=== PATIENT | female | born 1945 | race Caucasian/White ===

== ENCOUNTER 2023-08-02 12:11 | Emergency (ER) | payer MEDICARE, MEDICAID, SELFPAY ==
[2023-08-02] VITALS (13 sets, daily range): BP systolic 110–128; BP diastolic 45–84; PULSE 70–75; RESP 13–20; TEMP 36.4; O2SAT 97–100
--- NOTE | ~2023-08-02 | XR_ITS ---
XR chest 2V 08/02/2023 14:50 Indication: Cough. Weakness. Procedure: AP and lateral views of the chest Comparison: No prior studies for comparison. Findings: Cardiomegaly. No focal air space disease, pulmonary edema, pleural effusion or suspected pn eumothorax. Moderate thoracic spondylosis with accentuated kyphosis. Impression: 1: No acute cardiopulmonary disease. Reviewed, dictated and finalized at location B. Impression: 1: No acute cardiopulmonary disease.
--- NOTE | ~2023-08-02 | CT_ITS ---
Noncontrast CT scan of the cervical spine Technique: Multiple contiguous axial [address] images of the cervical spine were obtained and rec onstructed in 2D sagittal and coronal planes on the acquisition scanner. Dose reduction technique was used on this scan by utilizing automated exposure control, adjustment of the mA and/or kV according to patient size. The dose-length product (DLP) was 115.03 mGy-cm. Clinical History: Pain Findings: No fractures or dislocations. There is moderate degenerative disc change at C5-C6. There i s mild degenerative change of the remainder of the cervical spine. There is left neural foraminal doretha rowing at C3-C4 with prominent left facet arthropathy. There is mild bilateral neural foraminal narro wing at C4-C5 with bilateral facet arthropathy, left worse than right. There is bilateral neural fora yolis narrowing at C5-C6, with facet arthropathy and probable disc osteophyte complex. There is bilat eral neural foraminal narrowing at C6-C7, with probable disc ossify complex and uncovertebral degener ative change. No prevertebral soft tissue swelling. Impression: No fracture or subluxation of the cervical spine. Degenerative spondylosis, as above. Reviewed, dictated and finalized at [facility] [place]. Impression: No fracture or subluxation of the cervical spine. Degenerative spondylosis, as above.
--- NOTE | ~2023-08-02 | CT_ITS ---
Non-contrast Head CT History: Status post fall Technique: Axial non-contrast imaging of the brain was performed. Dose reduction technique was used on this scan by utilizing automated exposure control and iterative reconstruction technique. The dose -length product (DLP) was 605.33 mGy-cm. Findings: There is no evidence of intracranial hemorrhage, mass lesion, or acute infarct. Extensive chronic right MCA distribution infarct is present. Large chronic left parietal lobe infarct present. Marcell cisterna magna noted. There is moderate to severe generalized atrophy. The calvarium appears nor mal. There is extensive left maxillary sinus disease, as well as mild bilateral ethmoid sinus disease . The remaining visualized paranasal sinuses and mastoid air cells are clear. Impression: No definite acute intracranial abnormality seen. Extensive chronic right MCA distribution infarct and large chronic left parietal lobe infarct. Moderate to severe generalized atrophy. Sinus disease, as above. Reviewed, dictated and finalized at [facility]. Impression: No definite acute intracranial abnormality seen. Extensive chronic right MCA distribution infarct and large chronic left parieta l lobe infarct. Moderate to severe generalized atrophy. Sinus disease, as above.
--- NOTE | 2023-08-02 12:28 | ECG_ITS ---
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 Measurements Intervals [place] Rate: 71 P: 78 VA: 192 QRS: 29 QRSD: 95 T: 31 QT: 402 QTc: 437 Interpretive Statements SINUS RHYTHM NORMAL ECG No previous ECG available for comparison Electronically Signed On 08-02-2023 14:52:15 CDT by Octavio Benjamin D.O.
--- NOTE | 2023-08-02 12:50 | ED.AMS ---
HPI - Altered Mental Status General Chief Complaint: Altered Mental Status <Huong Patterson PA-C - Last Filed: 08/02/23 18:08> Stated Complaint: confusion <Huong Patterson PA-C - Last Filed: 08/02/23 18:08> Time Seen by Provider: 08/02/23 12:30 <Huong Patterson PA-C - Last Filed: 08/02/23 18:08> Focused HPI: This is a 78-year-old female that presents to the emergency department for altered mental status. Family member brought her in due to concern. They found her on the floor at her home and she seemed confused. She lives home alone. Patient does not have any complaints currently. She denied falling. GENERAL: Well-appearing, well-nourished, and in no acute distress. HEAD: Normocephalic, atraumatic. CHEST: Clear to auscultation. ?No respiratory distress. HEART: Regular rate and rhythm.? NEURO: ?Alert and oriented x3. Patient screened in triage and initial orders placed.? ?Additional care and disposition to be based upon?diagnostic testing and treatment. <Huong Patterson PA-C - Last Filed: 08/02/23 18:08> Related Data Allergies/Adverse Reactions: Allergies Allergy/AdvReac Type Severity Reaction Status Date / Time No Known Allergies Allergy Verified 08/02/23 12:28 <Huong Patterson PA-C - Last Filed: 08/02/23 18:08> Review of Systems Review of Systems: CONSTITUTIONAL: Denies fever, chills, or sweats. EYES: Denies visual changes, redness, or discharge. ENT: Denies rhinorrhea, congestion, sore throat, or otalgia. CARDIOVASCULAR: Denies chest pain, palpitations, or edema. RESPIRATORY: Denies cough or dyspnea. GASTROINTESTINAL: Denies abdominal pain, nausea, vomiting, or diarrhea. GENITOURINARY: Denies dysuria or hematuria. SKIN: Denies rash or itching. MUSCULOSKELETAL: Denies back pain, joint pain, or myalgia. NEUROLOGIC: Denies headache, numbness, dizziness, or weakness. PSYCHIATRIC: Denies anxiety or depression. 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 HEAD: Normocephalic, atraumatic. EYES: PERRLA and EOMI. ENT: Nares clear, no rhinorrhea or epistaxis. Mucous membranes moist. Oropharynx without tonsillar hypertrophy exudate or other lesions. CHEST: Clear to auscultation. No respiratory distress. No wheezes rales or rhonchi HEART: Regular rate and rhythm. No murmur heard. Normal peripheral pulses. ABDOMEN: Soft, nontender, nondistended, normal active bowel sounds. EXTREMITIES: Normal range of motion. No edema. SKIN: Warm, dry, no rash. NEURO: Alert and oriented x3. Left upper and lower extremity weakness. Right-sided strength 5/5 in all extremities. Sensation intact bilaterally. PSYCH: Normal mood and affect. <Danielito Wilson MD - Last Filed: 08/02/23 17:17> Course Course Emergency Course: 13:35 - The patient is alert and oriented x3 and appears to have decision making capacity. I agree with the HPI as documented in the medical screening exam. 16:50 - CBC demonstrates baseline anemia with hemoglobin 11.5 but is otherwise unremarkable. Chemistries demonstrate elevated total CK of 1512, though with a normal creatinine of 1.0. Chemistries otherwise unremarkable. UA n
--- NOTE | 2023-08-02 13:53 | PC.NURSE ---
no chloroprep swabs available in the building. healthcare account manager states to use chlorohexadine prevantics pads instead to obtain blood cultures
[2023-08-02 13:57] LABS: Basophils Percent Auto 0.5 % (0.2-1.2); Eosinophils Percent Auto 0.4 % (0-4.4); Hemoglobin 11.5 g/dL (12.0-15.0); Immature Granulocyte Percent A 1.2 % (0-0.5); Lymphocytes Absolute Auto 1.68 K/mm3 (0.9-3.2); Lymphocytes Percent Auto 20.6 % (18.3-44.2); Mean Corpuscular HGB Conc 33.8 g/dl (32-36); Mean Corpuscular Hemoglobin 28.3 pg (26-34); Mean Corpuscular Volume 83.5 fl (80-100); Mean Platelet Volume 10.4 fl (7.4-10.4); Monocytes Absolute Auto 0.4 K/mm3 (0.1-0.6); Monocytes Percent Auto 5.4 % (2.6-8.5); Neutrophils Absolute Auto 5.9 K/mm3 (1.3-6.7); Neutrophils Percent Auto 71.9 % (45.5-73.1); Platelet Count Result 318 k/mm3 (150-375); Red Blood Count 4.07 M/mm3 (4.2-5.4); Red Cell Distribution Width 15.6 % (11.5-14.5); White Blood Count 8.2 K/mm3 (4.5-10.0)
[2023-08-02] MEDS: LACTATED RINGERS 1,000 ML 999 ML IV CONT (14:00)
--- NOTE | 2023-08-02 14:16 | ED.AMS ---
HPI - Altered Mental Status General Chief Complaint: Altered Mental Status Stated Complaint: confusion Time Seen by Provider: 08/02/23 12:30 History of Present Illness HPI narrative: This is a 78-year-old female, with previous history of stroke resulting in left-sided weakness, who is brought in by family members to the emergency room for confusion. The patient was reportedly found by her son on the floor after an unknown period of time yesterday. The patient complains of some cough, but has no other complaints at this time. She is focally not interested in staying here today. 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 HEAD: Normocephalic, atraumatic. EYES: PERRLA and EOMI. ENT: Nares clear, no rhinorrhea or epistaxis. Mucous membranes moist. Oropharynx without tonsillar hypertrophy exudate or other lesions. CHEST: Clear to auscultation. No respiratory distress. No wheezes rales or rhonchi HEART: Regular rate and rhythm. No murmur heard. Normal peripheral pulses. ABDOMEN: Soft, nontender, nondistended, normal active bowel sounds. EXTREMITIES: Normal range of motion. No edema. SKIN: Warm, dry, no rash. NEURO: Alert and oriented x3. Left upper lower extremity weakness compared to the right. Right upper and lower extremity strength 5/5. Moving all 4 limbs spontaneously PSYCH: Normal mood and affect. Course Course Emergency Course: 17:05 -CBC demonstrates baseline anemia. Chemistries unremarkable. Total CK elevated at 1512. UA not concerning for UTI. The patient tested negative for influenza, RSV and COVID. CT head demonstrates chronic changes consistent with stroke but is not concerning for mass or intracranial hemorrhage. CT cervical spine not concerning for fracture or dislocation. EKG not concerning for ischemia. I discussed the findings with the patient. They shared decision-making conversation regarding admission for observation IV fluids firs his discharge for aggressive or fluids. The patient prefers Vital Signs Vital signs: Vital Signs Temperature 97.6 F 08/02/23 12:24 Pulse Rate 73 08/02/23 12:24 Respiratory Rate 20 08/02/23 12:24 Blood Pressure 123/60 08/02/23 12:24 Pulse Oximetry 97 08/02/23 12:24 Oxygen Delivery Room Air 08/02/23 12:24 Temperature 97.6 F 08/02/23 12:24 Pulse Rate 72 08/02/23 17:31 Respiratory Rate 15 08/02/23 17:31 Blood Pressure 110/45 L 08/02/23 17:31 Pulse Oximetry 98 08/02/23 17:31 Oxygen Delivery Room Air 08/02/23 13:28 MDM - Altered Mental Status MDM Narrative Medical decision making narrative: Plan: Imaging, EKG, labs, IV fluids, reassess Differential Diagnosis Differential diagnosis: Likely altered mental status, delirium, hypoglycemia, hyponatremia, subarachnoid hemorrhage and other (Pneumonia, COVID, urinary tract infection, rhabdomyolysis, metabolic abnormality, other) Lab Data 08/02/23 13:49 08/02/23 13:49 Labs: Lab Results 08/02/23 08/02/23 08/02/23 Range/Units 13:49 14:01 15:59 WBC 8.2 (4.5-10.0) K/mm3 RBC 4.07 L (4.2-5.4) M/mm3 Hgb 11.5 L (12.0-15.0) g/dL Hct 34.0 L (37.0-47.0) % MCV 83.5 (80-100)
[2023-08-02 14:53] LABS: INR 1.5; Prothrombin Time 18.5 Seconds (11.1-14.7)
--- NOTE | 2023-08-02 15:18 | PC.NURSE ---
fuel quality tech and RN attempted straight cath but unable to visualize anatomy. patient has been provided IV fluids and bedpan. educated patient to notified staff with any urge to urinate
[2023-08-02 15:28] LABS: Alanine Aminotransferase 40 U/L (6-35); Albumin Level 3.8 g/dL (3.5-5.1); Alkaline Phosphatase 146 U/L (38-126); Anion Gap 10 mmol/L (4-12); Aspartate Amino Transferase 102 U/L (14-36); Bilirubin,Total 0.6 mg/dL (0.2-1.3); Blood Urea Nitrogen 40 mg/dL (7-17); Calcium 9.2 mg/dL (8.4-10.2); Carbon Dioxide 19 mmol/L (22-30); Chloride 109 mmol/L (98-107); Creatine Kinase 1512 U/L (30-135); Estimated Glomerular Filt Rate 53; Glucose 90 mg/dL (65-110); Potassium 3.5 mmol/L (3.4-5.0); Sodium 138 mmol/L (137-145)
[2023-08-02 15:54] LABS: Influenza A QL RT-PCR Negative (Negative); Influenza B QL RT-PCR Negative (Negative); RSV RNA, RT-PCR Negative (Negative); SARS-CoV-2 RNA PCR Negative (Negative)
[2023-08-02 16:22] LABS: Appearance Urine Clear (Clear); Bilirubin Urine Negative (Negative); Blood Urine Negative (Negative); Color Urine Yellow (Yellow); Glucose Urine UA Negative (Negative); Ketones Urine 2+ mg/dL (Negative); Leukocyte Esterase Ur Negative LEU/UL (Negative); Nitrate Urine Negative (Negative); Protein Urine Negative (Negative); Specific Grav Ur 1.026 (1.001-1.035); pH Urine 5.5 (5.0-9.0)
[2023-08-02 16:25] LABS: Add Urine Microscopic? NO
== END 2023-08-02 18:01 | disposition home or self-care (01) ==
PROVIDERS: Physician Assistant; Emergency Provider Preventive Medicine Aerospace Medicine; PCP Family Medicine
DX: R74.8 Abnormal levels of other serum enzymes (principal); I69.354 Hemiplegia and hemiparesis following cerebral infarction affecting left non-dominant side; Z20.822 Contact with and (suspected) exposure to COVID-19
CPT/HCPCS: 36415; 70450; 71046; 72125; 80053; 81003; 82550; 85025; 85610; 85730; 87040; 87637; 93005; 96360; 99284; J7120

== ENCOUNTER 2023-08-09 10:27 | Inpatient (IN) | payer MEDICARE, MEDICAID, SELFPAY ==
[2023-08-09] VITALS (8 sets, daily range): BP systolic 114–151; BP diastolic 59–97; PULSE 78–155; RESP 16–18; TEMP 36.3–36.7; O2SAT 92–100; BMI 22.3
--- NOTE | ~2023-08-09 | CT_ITS ---
EXAMINATION: CT cervical spine wo con DATE: 08/09/2023 11:38 INDICATION: Neck injury. Fall. TECHNIQUE: Computed tomography (CT) of the cervical spine was performed without intravenous contrast. Automated exposure control and iterative reconstruction technique were employed. The dose-length pro duct was 107.27 mGy-cm. COMPARISON: None FINDINGS: There is 6 degrees levocurvature of cervical spine. Vertebral body heights are normal. Ther e is mild chronic anterior wedging of C4 and C5 vertebral bodies. There is mildly decreased disc heig ht at C4-C5 and moderately decreased disc height at C5-C6. The following disc levels are specifically discussed: C2-C3: There is severe right and mild left uncovertebral joint osteoarthritis. There is severe right and mild left facet joint osteoarthritis. There is mild right neural foraminal stenosis. There is mil d central canal stenosis. C3-C4: There is mild bilateral uncovertebral joint osteoarthritis. There is severe bilateral facet johanna int osteoarthritis. There is mild bilateral neural foraminal stenosis. There is mild central canal st enosis. C4-C5: There is severe bilateral uncovertebral joint osteoarthritis. There is mild right and severe l eft facet joint osteoarthritis. There is mild bilateral neural foraminal stenosis. There is mild cent ral canal stenosis. C5-C6: There is severe bilateral uncovertebral joint osteoarthritis. There is mild bilateral facet johanna int osteoarthritis. There is mild bilateral neural foraminal stenosis. There is mild central canal st enosis. C6-C7: There is severe bilateral uncovertebral joint osteoarthritis. There is mild bilateral facet johanna int osteoarthritis. There is moderate bilateral neural foraminal stenosis. There is mild central alessandra l stenosis. C7-T1: There is no uncovertebral joint osteoarthritis. There is moderate bilateral facet joint osteoa rthritis. There is mild bilateral neural foraminal stenosis. There is no central canal stenosis. IMPRESSION: 1. No fracture. 2. Moderate cervical spondylosis. Reviewed, dictated and finalized at location A.
--- NOTE | ~2023-08-09 | XR_ITS ---
Portable chest x-ray Comparison: 08/02/2023 Clinical History: Postbiopsy Findings: Possible minimal bibasilar pulmonary edema. No pneumothorax. Cardiomediastinal silhouette is stable. Bones and soft tissues are unremarkable. Impression: Possible minimal bibasilar pulmonary edema. No pneumothorax. Reviewed, dictated and finalized at [facility]. Impression: Possible minimal bibasilar pulmonary edema. No pneumothorax.
--- NOTE | ~2023-08-09 | US_ITS ---
EXAMINATION: US biopsy liver DATE: 08/12/2023 11:20 INDICATION: Hypodense mass in the left hepatic lobe TECHNIQUE: The procedure including the risks and benefits was discussed with the patient. Risks discu ssed included bleeding, infection, allergic reaction and pneumothorax. The patient understood the ris ks and agreed to proceed. The skin overlying the liver was prepped and draped in usual sterile fashi on. Anesthetic was administered with 1% lidocaine subcutaneously. At full inspiration a 18 gauge cor e biopsy needle was advanced via intercostal approach caudal to the lung under continuous ultrasound observation to the lesion of interest. 3 core biopsy specimens were obtained. The needle was remove d and the entry site was cleaned and dressed. Post procedure ultrasound demonstrated no hemorrhage. Post procedure chest radiograph demonstrated no pneumothorax. FINDINGS: Ultrasound images demonstrate biopsy needle advanced into a subtle approximately 1 cm isoec hoic nodule with subtle hypoechoic halo in the right hepatic lobe corresponding to the lesion of conc amber on prior CT. IMPRESSION: 1. Successful Ultrasound-guided biopsy of and approximately 1 cm right hepatic lobe nodule which base d upon prior CT imaging is concerning for metastatic pancreatic cancer. Reviewed, dictated and finalized at location A. IMPRESSION: 1. Successful Ultrasound-guided biopsy of and approximately 1 cm right hepatic lobe nodule which based upon prior CT imaging is concerning for metastatic panc reatic cancer.
--- NOTE | ~2023-08-09 | CT_ITS ---
EXAMINATION: CT brain wo con DATE: 08/09/2023 11:38 INDICATION: Fall. TECHNIQUE: Computed tomography (CT) of the head was performed without intravenous contrast. The mA wa s adjusted according to patient size. Iterative reconstruction technique was employed. The dose-lengt h product was 681.00 mGy-cm. COMPARISON: Head CT 08/02/2023 FINDINGS: There is an old infarct involving right frontal parietal temporal region and right insula. There is an old infarct involving left parietal lobe. There is an old infarct in left cerebellum. The re is an old infarct in the left basal ganglia. There is no intracranial hemorrhage, acute infarction , or abnormal intracranial mass lesion. There is ex vacuo dilatation of the trigones of the lateral v entricles. There are likely changes of ocular lens replacement surgeries. There is mucosal thickening in the paranasal sinuses. The mastoid air cells are normal. IMPRESSION: 1. Old infarcts in the brain. Reviewed, dictated and finalized at location A.
--- NOTE | ~2023-08-09 | CT_ITS ---
EXAMINATION: CT lumbar spine wo con DATE: 08/09/2023 11:38 INDICATION: Back pain. Fall. TECHNIQUE: Computed tomography (CT) of the lumbar spine was performed without intravenous contrast. A utomated exposure control and iterative reconstruction technique were employed. The dose-length produ ct was 648.26 mGy-cm. COMPARISON: None FINDINGS: There is 3 mm retrolisthesis of L1 on L2 and L2 on L3. Vertebral body heights are normal. T here is moderately decreased disc height at T12-L1, L1-L2, and L2-L3 and mildly decreased disc height at L4-L5. There is Baastrup disease from L2-L3 through L5-S1. The following disc levels are specific ally discussed: L1-L2: The disc is bulging. There is moderate right and mild left facet joint osteoarthritis. There i s moderate bilateral neural foraminal stenosis. There is mild central canal stenosis. L2-L3: The disc is bulging. There is moderate right and severe left facet joint osteoarthritis. There is severe bilateral neural foraminal stenosis. There is moderate central canal stenosis. L3-L4: The disc is bulging. There is moderate bilateral facet joint osteoarthritis. There is mild rig ht and moderate left neural foraminal stenosis. There is mild central canal stenosis. L4-L5: The disc is bulging. There is severe bilateral facet joint osteoarthritis. There is mild bilat eral neural foraminal stenosis. There is severe central canal stenosis. L5-S1: The disc is bulging. There is severe bilateral facet joint osteoarthritis. There is mild bilat eral neural foraminal stenosis. There is mild central canal stenosis. IMPRESSION: 1. No fracture. 2. Severe lumbar spondylosis. Reviewed, dictated and finalized at location A.
--- NOTE | ~2023-08-09 | CT_ITS ---
CT of the Abdomen and Pelvis: Indication: Abnormal LFTs Technique: 2.5 mm axial scans were obtained through the abdomen and pelvis following intravenous adm inistration of 100 cc of Omnipaque 350. Dose reduction technique was used on this scan by utilizing a utomated exposure control and iterative reconstruction technique. The dose-length product (DLP) was 4 91.64 mGy-cm. Findings: Scans through the lung bases demonstrate minimal pleural fluid and minimal bibasilar atele ctatic change. There is elevation of the left hemidiaphragm. There is a 1.3 cm indeterminate hypodense right hepatic lobe lesion (axial image 36). Status post pro bable prior distal pancreatectomy. There is a probable ill-defined hypodense mass at the surgical mar gin of the pancreatic body measuring up to approximately 2.2 x 2.4 cm (axial image 60 for example). T his lesion probably extends along the posterior margin of the pancreatic body/neck. The spleen, gallb ladder, adrenals and kidneys are within normal limits. There are atherosclerotic calcifications of th e aorta. No lymphadenopathy. No bowel obstruction or bowel wall thickening. There is no evidence to suggest acute appendicitis. Images through the pelvis were performed. Probable mild diffuse urinary bladder wall thickening. No p elvic mass. No ascites. Impression: Suspected prior distal pancreatectomy with somewhat ill-defined 2.2 x 2.4 subcentimeter probable mass at the surgical margin, suspicious for residual/recurrent pancreatic adenocarcinoma. Correlate with prior surgical and clinical history. 1.3 cm hypodense right hepatic lobe lesion is suspicious for metastasis until proven otherwise given the above findings. Possible cystitis. Correlate with urinalysis. Reviewed, dictated and finalized at location . Impression: Suspected prior distal pancreatectomy with somewhat ill-defined 2.2 x 2.4 subce ntimeter probable mass at the surgical margin, suspicious for residual/recurren t pancreatic adenocarcinoma. Correlate with prior surgical and clinical history . 1.3 cm hypodense right hepatic lobe lesion is suspicious for metastasis until p roven otherwise given the above findings. Possible cystitis. Correlate with urinalysis.
--- NOTE | 2023-08-09 10:46 | ECG_ITS ---
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 Measurements Intervals [place] Rate: 100 P: 0 KS: 0 QRS: -9 QRSD: 91 T: -38 QT: 353 QTc: 456 Interpretive Statements ATRIAL FLUTTER/TACHYCARDIA WITH RAPID VENTRICULAR RESPONSE NONSPECIFIC T-WAVE ABNORMALITY ABNORMAL ECG Compared to ECG 08/02/2023 14:04:14 ATRIAL FLUTTER REPLACES SINUS RHYTHM Electronically Signed On 08-10-2023 07:47:05 CDT by Kwaku Mendez M.D.
[2023-08-09 11:00] LABS: Basophils Percent Auto 0.2 % (0.2-1.2); Eosinophils Percent Auto 0.1 % (0-4.4); Hematocrit 43.5 % (37.0-47.0); Hemoglobin 14.4 g/dL (12.0-15.0); Immature Granulocyte Absolute 0.08 K/mm3 (0.00-0.031); Immature Granulocyte Percent A 0.6 % (0-0.5); Lymphocytes Percent Auto 10.4 % (18.3-44.2); Mean Corpuscular HGB Conc 33.1 g/dl (32-36); Mean Corpuscular Hemoglobin 28.1 pg (26-34); Mean Corpuscular Volume 84.8 fl (80-100); Mean Platelet Volume 10.9 fl (7.4-10.4); Monocytes Percent Auto 7.2 % (2.6-8.5); Neutrophils Absolute Auto 11.7 K/mm3 (1.3-6.7); Neutrophils Percent Auto 81.5 % (45.5-73.1); Platelet Count Result 399 k/mm3 (150-375); Red Blood Count 5.13 M/mm3 (4.2-5.4); White Blood Count 14.4 K/mm3 (4.5-10.0)
--- NOTE | 2023-08-09 11:11 | ED.FALL ---
HPI - Fall General Chief Complaint: Fall Stated Complaint: GLF Time Seen by Provider: 08/09/23 10:46 Source: patient Mode of arrival: ambulatory Limitations: no limitations History of Present Illness HPI Narrative: Sandra is a 78-year-old female patient presenting to the emergency room today with complaints of possible ground level fall. Patient denies any pain currently. When asked what brought her in she states the EMS did not feel as though she was safe to stay home alone. She does have a very old bruise to the right side of her forehead. Reported to EMS that she has some low back pain from being cramped up in the middle the night. States she woke up on the for but does not recall how she ended up on the floor. Related Data Allergies Allergy/AdvReac Type Severity Reaction Status Date / Time No Known Allergies Allergy Verified 08/02/23 12:28 Review of Systems Review of Systems: Pertinent positives per HPI. Patient denies any fever, chills, rash, headache, visual changes, dizziness, cough, runny nose, sore throat, shortness of breath, chest pain, palpitations, nausea, vomiting, diarrhea, constipation, abdominal pain, or any urinary issues. 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 There is no relevant family history pertinent to the patient complaint. Exam Narrative: General: Well-developed, well nourished, in no apparent distress Head: Normocephalic, old bruise to the right forehead. Eyes: Pupils equally round and reactive to light bilaterally, EOM intact, sclera and conjunctive clear, no discharge, lids normal Ears: TMs intact and clear, ear canals clear, no drainage, grossly hearing normal. Nose: Nares patent, no discharge, no inflammation, no sinus tenderness. Mouth: Oropharynx without lesions or masses, good dentition, MMM. Tongue midline, even rise and fall of uvula Neck: Supple, trachea midline, no enlargement of anterior or posterior cervical nodes, no thyroid masses or goiter palpable. Cardio: Regular rate and rhythm, s1 and s2 normal, no murmur appreciated. Resp: Clear to auscultation bilaterally anteriorly and posteriorly, no rhonchi, rales, wheezing or rubs Abdomen: Soft, pliable, nondistended, nontender palpation, no organomegaly, no CVAT tenderness Musculoskeletal: No deformity, non-tender to palpation, grossly normal range of motion, muscle strength strong and equal, peripheral pulse strong, no edema, no cyanosis, normal gait and station Neuro: Alert and oriented x3 with normal speech, residual left sided weakness from old CVA, cranial nerves I through XII intact, muscle strength 3 out of 5, sensation intact bilaterally. Course Course Emergency Course: Portions of this record may have been created with voice recognition software. Vital Signs Vital signs: Vital Signs Temperature 36.3 C L 08/09/23 10:36 Pulse Rate 100 08/09/23 10:36 Respiratory Rate 16 08/09/23 10:36 Blood Pressure 146/97 H 08/09/23 10:36 Pulse Oximetry 96 08/09/23 10:36 Oxygen Delivery Room Air 08/09/23 10:36 Temperature 36.3 C L 08/09/23 10:36 Pulse Rate 100 08/09/23 10:36 Respiratory Rate 16 08/09/23 10:36 Blood Pressure 146/97 H 08/09/23 10:36 Pulse Oximetry 96 08/09/23 10:36 Oxygen Delivery Room Air 08/09/23 10:36 Vital signs reviewed MDM - Fall MDM Narrative Medical decision making narrati
[2023-08-09 11:20] LABS: Alanine Aminotransferase 38 U/L (6-35); Albumin Level 4.2 g/dL (3.5-5.1); Alkaline Phosphatase 168 U/L (38-126); Anion Gap 8 mmol/L (4-12); Aspartate Amino Transferase 65 U/L (14-36); Bilirubin,Total 1.8 mg/dL (0.2-1.3); Blood Urea Nitrogen 10 mg/dL (7-17); Calcium 9.1 mg/dL (8.4-10.2); Carbon Dioxide 28 mmol/L (22-30); Chloride 103 mmol/L (98-107); Estimated CRCL calculation 66 ml/min; Estimated Glomerular Filt Rate > 60; Glucose 122 mg/dL (65-110); Potassium 2.9 mmol/L (3.4-5.0); Sodium 139 mmol/L (137-145)
[2023-08-09 12:10] LABS: Appearance Urine Cloudy (Clear); Bacteria Urine 4+ /hpf; Bilirubin Urine Negative (Negative); Blood Urine 1+ (Negative); Color Urine Yellow (Yellow); Glucose Urine UA Negative (Negative); Ketones Urine 1+ mg/dL (Negative); Leukocyte Esterase Ur Negative LEU/UL (Negative); Nitrate Urine Positive (Negative); Non Pathogenic Casts 0-2; Protein Urine 1+ mg/dL (Negative); RBC Urine 0-2 /hpf (0-2); Specific Grav Ur 1.013 (1.001-1.035); Squamous Epithelial Cell Urine None Seen /hpf (Few)
[2023-08-09 12:18] LABS: Add Urine Microscopic? YES
[2023-08-09] MEDS: POTASSIUM CHLORIDE 20 MEQ PACKET (FOR LIQUID) 40 MEQ PO (13:18)
[2023-08-09] MEDS: SODIUM CHLORIDE 0.9% IV 1,000 ML 999 ML IV CONT (13:18)
[2023-08-09] MEDS: POTASSIUM CHLORIDE INJ 40 MEQ in SODIUM CHLORIDE 0.9% IV 500 ML 130 MEQ IVPB (13:18)
[2023-08-09 13:40] LABS: Creatine Kinase 1066 U/L (30-135); Troponin I 0.072 ng/mL (0.000-0.034)
[2023-08-09 15:09] LABS: Ammonia < 9 umol/L (9-30)
--- NOTE | 2023-08-09 16:27 | PM.IMHP ---
H&P: HPI History of Present Illness Date/Time: 08/09/23 16:27 Chief Complaint: Fall Narrative: 78 y/o F presents here after a ground level fall with PMH of CVA (MCA region, residual LUE weakness, 1971), glaucoma, and hypothyroidism. The patient presents here from home via EMS after she sustained a ground level fall overnight. The patient reports that she woke up on the floor last night, unsure how she fell (mechanical versus syncope). She was unable to get up off the floor and laid there all night. Reports incontinence this morning. Now reporting low back pain after fall, pain is nonradiating, and diffuse. Patient seen at [place] ED on 08/02/2023 for similar presentation. Family found her on the floor and we were concerned she was confused. Upon arrival to the ED she was alert and orientated x3. Her CK was elevated then at 1512. Patient had decision-making capacity and elected to be discharged and orally rehydrate. Denies unintentional weight loss or easy bleeding/bruising. Endorses occasional night sweats. No prior history of cancer. Patient is adopted so unknown family history of cancer. Initial VS at presentation: 97.4? F, HR 100, RR 16, 146/97, and 96% on RA. ED workup showed: WBC 14.4, no anemia, potassium 2.9, creatinine 0.5 and GFR >60, glucose 122, total bilirubin 1.8, AST 65, ALT 38, ammonia <9, CK 1066, initial troponin 0.072, and UA consistent with UTI. 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 Review of Systems Review of Systems: All systems reviewed & are unremarkable except as noted in HPI and below [facility] Past Medical History Medical History CVA (cerebral vascular accident) (~1970) In right MCA territory with left-sided weakness Hypothyroidism Surgical History Surgical History No significant past surgical history Social History Social History Smoking packs per day: 2 Smoking cigarettes per day: 40.0 Years smoked: 30 Smoking pack-years: 60.00 Smoking status: Former smoker Tobacco type: cigarettes Alcohol intake: never Substance use: never Do You Feel Safe in your Home?: Yes Lack of Transportation: No Lack of Food: Never True Current Housing: I Have Housing Concerned About Future Housing: No Difficulty Paying Gas/Electric Bills: No Difficulty Paying for Meds: No Currently Unemployed: No Education: Master's Degree or Higher Difficulty w/ Childcare or Family Care: No Spiritual care concerns: No Meds Home Medications and Allergies Home Medications Medication Instructions Recorded Confirmed Type latanoprost 0.005 % eye drops 1 drp EACH EYE HS 08/09/23 08/09/23 History levothyroxine 25 mcg tablet 25 mcg PO DAILY 08/09/23 08/09/23 History Allergies Allergy/AdvReac Type Severity Reaction Status Date / Time No Known Allergies Allergy Verified 08/02/23 12:28 Vital Signs Vital Signs - 24 hr 08/09/23 10:36 08/09/23 15:37 08/09/23 16:20 Temperature 97.4 F L 98.1 F 97.9 F Pulse Rate 100 97 155 H Respiratory Rate 16 18 Blood Pressure 146/97 H 151/75 H 133/88 Pulse Oximetry 96 100 92 Oxygen Delivery Room Air Exam Const: General: comfortable and no acute distress Other: , female, elderly, chronically ill-appearing HENMT: Face/Nose/Sinus: Normal nares present Mouth: Yes dry mucous membranes Eyes: General: appearance normal, both eyes and all related structures Sclera: sclerae normal Pupils: Equal, rou
[2023-08-09] MEDS: SODIUM CHLORIDE 0.9% IV 1,000 ML 150 ML IV CONT ×2 (16:31→23:54)
[2023-08-09] MEDS: METOPROLOL TARTRATE INJ 5 MG/5 ML VIAL IV PUSH ×2 (16:31→17:24)
--- NOTE | 2023-08-09 16:32 | ECG_ITS ---
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 Measurements Intervals [place] Rate: 111 P: 0 NC: 0 QRS: -15 QRSD: 87 T: -5 QT: 317 QTc: 432 Interpretive Statements ATRIAL FLUTTER/TACHYCARDIA WITH RAPID VENTRICULAR RESPONSE LOW QRS VOLTAGE IN PRECORDIAL LEADS [QRS DEFLECTION < 1.0 mV IN CHEST LEADS] NONSPECIFIC T-WAVE ABNORMALITY ABNORMAL ECG Compared to ECG 08/09/2023 10:57:28 NO DIFFERENCE Electronically Signed On 08-10-2023 08:00:35 CDT by Kwaku Mendez M.D.
[2023-08-09] MEDS: ASPIRIN 81 MG CHEWABLE TABLET 324 MG PO (17:24)
[2023-08-09 17:26] LABS: Troponin I 0.059 ng/mL (0.000-0.034)
[2023-08-09 20:28] LABS: Anion Gap 5 mmol/L (4-12); Blood Urea Nitrogen 9 mg/dL (7-17); Calcium 8.2 mg/dL (8.4-10.2); Carbon Dioxide 21 mmol/L (22-30); Chloride 113 mmol/L (98-107); Estimated CRCL calculation 66 ml/min; Estimated Glomerular Filt Rate > 60; Glucose 106 mg/dL (65-110); Potassium 3.9 mmol/L (3.4-5.0); Sodium 139 mmol/L (137-145)
[2023-08-09] MEDS: LATANOPROST 0.005% OP SOLN 2.5 ML BTL 1 DROP EACH EYE (23:54)
[2023-08-10] VITALS (20 sets, daily range): BP systolic 109–135; BP diastolic 64–97; PULSE 67–154; RESP 16–22; TEMP 36.3–37.1; O2SAT 92–100
--- NOTE | 2023-08-10 | ECHO_ITS ---
Patient Info Name: Zia Sandhu Age: 78 years : 1945 Gender: Female Ht: 64 in Wt: 130 lbs BSA: 1.64 m2 HR: 98 bpm BP: 118 / 64 mmHg Heart Rhythm: Atrial Flutter Technical Quality: Good Exam Date: 08/10/2023 9:11 AM Exam Location: Echo Lab Patient Status: Inpatient Admit Date: 08/09/2023 Staff Ordering Physician: Mey Warner APRN Field Hand: Jose Perea RDCS Attending Provider: Andre Acosta MD Referring Physician: Timmy LONDON; Exam Type: CA echo doppler color flow Study Info Indications - new atrial dysrhythmia Complete two-dimensional, color flow and Doppler transthoracic echocardiogram is performed. Summary 1. Complete two-dimensional, color flow and Doppler transthoracic echocardiogram is performed. 2. Technically challenging echocardiogram with suboptimal image quality. 3. Normal appearing left ventricular systolic function. 4. Significant left atrial dilation. 5. Sclerotic but not significantly stenotic aortic valve. 6. Atrial flutter. Left Ventricle Left ventricular chamber dimension is normal. Left ventricular systolic function is normal, estimated at 50-55%. The left ventricular diastolic function is indeterminate. Right Ventricle Right ventricular chamber dimension is normal. Left Atria Left atrial chamber dimension is severely enlarged. Right Atria Right atrial chamber dimension is normal. Aortic Valve The aortic valve is trileaflet. There is mild aortic valve sclerosis. There is mild aortic valve stenosis with a peak velocity of 217 cm/s, mean gradient of 10 mmHg, and aortic valve area of 1.7 cm2. Pulmonic Valve The pulmonic valve is not well visualized. Mitral Valve The mitral valve has normal leaflets. There is trace mitral valve regurgitation. The mitral valve annulus is mildly calcified. Tricuspid Valve The tricuspid valve leaflets are normal. There is mild tricuspid valve regurgitation. Pericardium/Pleural The pericardium appears normal. Aorta The aortic root size at the sinus of Valsalva is normal. Left Ventricular Outflow Tract Name Value Normal LVOT 2D LVOT Diameter 2.0 cm LVOT Doppler LVOT Peak Gradient 4 mmHg LVOT Mean Gradient 3 mmHg LVOT VTI 18 cm LVOT VTI/AV VTI Ratio 0.5 LVOT Stroke Volume 56 ml LVOT CO 4.8 l/min LVOT CI 2.9 l/min/m2 Pulmonic Valve Name Value Normal PV Doppler PV Peak Gradient 3 mmHg Mitral Valve Name Value Normal MV Doppler MV Peak Gradient 6 mmHg
--- NOTE | 2023-08-10 04:35 | ECG_ITS ---
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 Measurements Intervals [place] Rate: 153 P: 0 MD: 0 QRS: -14 QRSD: 98 T: -40 QT: 253 QTc: 404 Interpretive Statements ATRIAL FLUTTER/TACHYCARDIA WITH RAPID VENTRICULAR RESPONSE LOW QRS VOLTAGE IN EXTREMITY LEADS [QRS DEFLECTION < 0.5 mV IN LIMB LEADS] NONSPECIFIC T-WAVE ABNORMALITY ABNORMAL ECG Compared to ECG 08/09/2023 16:43:36 ACCELERATED HEART RATE RESPONSE TO ATRIAL FLUTTER Electronically Signed On 08-10-2023 08:11:33 CDT by Kwaku Mendez M.D.
[2023-08-10 04:40] LABS: Basophils Absolute Auto 0.1 K/mm3 (0.0-0.1); Basophils Percent Auto 0.5 % (0.2-1.2); Eosinophils Absolute Auto 0.1 K/mm3 (0-0.3); Eosinophils Percent Auto 0.6 % (0-4.4); Hematocrit 36.5 % (37.0-47.0); Hemoglobin 11.5 g/dL (12.0-15.0); Immature Granulocyte Absolute 0.06 K/mm3 (0.00-0.031); Immature Granulocyte Percent A 0.5 % (0-0.5); Lymphocytes Absolute Auto 1.92 K/mm3 (0.9-3.2); Lymphocytes Percent Auto 17.5 % (18.3-44.2); Mean Corpuscular HGB Conc 31.5 g/dl (32-36); Mean Corpuscular Volume 88.8 fl (80-100); Mean Platelet Volume 10.8 fl (7.4-10.4); Monocytes Absolute Auto 0.9 K/mm3 (0.1-0.6); Monocytes Percent Auto 8.2 % (2.6-8.5); Neutrophils Percent Auto 72.7 % (45.5-73.1); Platelet Count Result 295 k/mm3 (150-375); Red Blood Count 4.11 M/mm3 (4.2-5.4); Red Cell Distribution Width 16.5 % (11.5-14.5)
[2023-08-10 04:57] LABS: Alanine Aminotransferase 28 U/L (6-35); Albumin Level 3.1 g/dL (3.5-5.1); Alkaline Phosphatase 130 U/L (38-126); Anion Gap 5 mmol/L (4-12); Aspartate Amino Transferase 47 U/L (14-36); Bilirubin,Total 1.4 mg/dL (0.2-1.3); Blood Urea Nitrogen 9 mg/dL (7-17); Calcium 8.3 mg/dL (8.4-10.2); Carbon Dioxide 17 mmol/L (22-30); Chloride 116 mmol/L (98-107); Cholesterol 143 mg/dL (0-200); Creatine Kinase 586 U/L (30-135); Estimated CRCL calculation 66 ml/min; Estimated Glomerular Filt Rate > 60; Glucose 95 mg/dL (65-110); HDL Direct 42 mg/dL; Magnesium 1.9 mg/dL (1.6-2.3); Phosphorus 1.9 mg/dL (2.5-4.5); Potassium 3.4 mmol/L (3.4-5.0); Sodium 138 mmol/L (137-145); Triglycerides 96 mg/dL (<150)
[2023-08-10 05:08] LABS: LDL Cholesterol Direct 83 mg/dL
[2023-08-10] MEDS: LEVOTHYROXINE SODIUM 25 MCG TABLET PO (05:32)
[2023-08-10] MEDS: SODIUM CHLORIDE 0.9% IV 1,000 ML 150 ML IV CONT ×2 (08:50→18:31)
--- NOTE | 2023-08-10 11:02 | PM.CNCAR ---
Assessment and Plan Assessment and plan (1) Atrial dysrhythmia: Code(s): I49.8 - Other specified cardiac arrhythmias Status: Acute (2) Pancreatic mass: Code(s): K86.89 - Other specified diseases of pancreas Status: Acute Plan This is a 78-year-old woman who has been brought to the hospital a couple of times in the last week with falling. Her evaluation this time shows that she is in atrial flutter and appears to be asymptomatic and unaware of her arrhythmia. Her previous ER evaluation last week she was in sinus rhythm. She has concerning findings abdominal CT that would indicate suspicion for a metastatic malignancy. Apparently a liver biopsy is planned. At this point I am going to place her on metoprolol to try to provide control of her heart rate in atrial flutter. The IV metoprolol seemed to be of some benefit yesterday evening. Because of her falls, frailty and plans for liver biopsy we will not anticoagulate her at this time. We are at a disadvantage with lack of medical records regarding this patient's previous care and previous abdominal surgery that she appears to have had Kwaku Mendez MD [facility] History of Present Illness History of Present Illness Consult date/time: 08/10/23 11:02 Consult reason: pre-op evaluation Reason For Visit: Rhabdo/UTI/Elevated Trop/CK/Hypokalemia Narrative: This is a 78-year-old woman I am seeing at the request of the hospitalist because of atrial flutter. She is not known to me prior to this consultation and she is a poor historian regarding her medical history and circumstances regarding her admission here at this hospital. She appears to get her medical care elsewhere and was brought here yesterday by EMS when apparently was found that she had had a fall at her home. She does not remember falling in can not remember the circumstances of that. She has felt to have an element of some rhabdomyolysis and I am consult is to see her because she is in atrial flutter which is an arrhythmia that apparently is new as she was here in the emergency room about a week earlier with a fall at that time her cardiac rhythm was normal. She is not reporting any awareness of palpitations, tachycardia shortness of breath or chest pain. She had 3 electrocardiograms done since arrival here yesterday which demonstrate atrial flutter with rapid ventricular response. She was given some intravenous metoprolol which did help to control her heart rate. Her evaluation in the emergency room with included a CT of her abdomen which appears to show evidence of a previous distal pancreatic resection with a mass in that vicinity and a mass in the liver which apparently is concerning for the possibility of metastatic pancreatic cancer. The patient says she has never had cancer. The patient simply with indicates to me that she wants to be discharged as soon as possible to get back to her home to care for her dog. Sounds like a CT-guided biopsy of her liver mass is planned. An echocardiogram was done this morning which has yet to be interpreted. She denies any history of hemorrhagic problems but as stated above has been hospitalized or brought to the ER twice in the last week because of falling. 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
[2023-08-10] MEDS: METOPROLOL SUCCINATE EXT REL 50 MG TABCR PO (11:53)
[2023-08-10] MEDS: LATANOPROST 0.005% OP SOLN 2.5 ML BTL 1 DROP EACH EYE (19:53)
[2023-08-11] VITALS (18 sets, daily range): BP systolic 122–162; BP diastolic 62–85; PULSE 66–121; RESP 18–20; TEMP 35.9–36.9; O2SAT 92–99
[2023-08-11] MEDS: SODIUM CHLORIDE 0.9% IV 1,000 ML 150 ML IV CONT (01:53)
[2023-08-11] MEDS: LEVOTHYROXINE SODIUM 25 MCG TABLET PO (05:32)
--- NOTE | 2023-08-11 07:52 | PM.IMPN ---
Progress Note: A&P Assessment and Plan (1) Pancreatic mass: Code(s): K86.89 - Other specified diseases of pancreas Status: Acute (2) Rhabdomyolysis: Qualifiers: Rhabdomyolysis type: non-traumatic Qualified Code(s): M62.82 - Rhabdomyolysis Code(s): M62.82 - Rhabdomyolysis Status: Acute (3) Transaminitis: Code(s): R74.01 - Elevation of levels of liver transaminase levels Status: Acute (4) Elevated troponin: Code(s): R79.89 - Other specified abnormal findings of blood chemistry Status: Acute (5) Atrial dysrhythmia: Code(s): I49.8 - Other specified cardiac arrhythmias Status: Acute (6) Acute UTI: Code(s): N39.0 - Urinary tract infection, site not specified Status: Acute Plan Patient here with multiple medical problems. Has had recurrent falls and found down at home. no obvious injury reported. Had a very old bruised right side of her forehead. She does not recall the fall. ED vitals were stable. Patient nontoxic Left drip evaluation showed RBC count of 14 K hemoglobin of 14 platelets 399 sodium 139 potassium was low at 2.9 chloride 103 BUN 10 creatinine 0.5. Total bilirubin 1.8 mild elevated liver enzymes with alkaline phosphorus 160 urinalysis showed cloudy urine with 1+ protein 1+ ketone 1+ blood nitrate positive 6-10 WBC and 4+ bacteria. CT brain showed old infarct with no acute findings. CT cervical spine showed moderate spondylosis. CT lumbar spine shows severe spondylosis. CT abdomen pelvis showed suspected prior distal pancreatectomy with somewhat ill-defined 2.2 x 2.4 subcentimeter probable mass at the surgical margin suspicious for residual/ recurrent pancreatic adenocarcinoma. 1.3 cm hypodense right hepatic lesion also suspicious for metastatic. Possible cystitis. CK level was elevated at 1066.Troponin mildly elevated at 0.072. serial troponin flat. Initial EKG showed atrial flutter tachycardia with RVR moderate ST depression. Echo showed normal appearing left ventricular systolic function. Atrial flutter. Atrial flutter asymptomatic metoprolol started for rate control strategy due to recurrent fall not a candidate for anticoagulation . TSH normal Recurrent fall Hypokalemia Rhabdomyolysis Elevated liver enzymes new ill-defined mass the pancreas and liver lesion biopsy of the liver lesion planned UTI ceftriaxone urine culture with coag-negative staph not saprophyticus Elevated troponin likely demand ischemia echo Reviewed . Cardiology consulted Diet: Heart healthy GI Prophylaxis: Not indicated DVT Prophylaxis: SCDs Lines: Peripheral Code Status: full code, surrogate decision maker Susannah Kent (sister) Subjective Date/time seen: 08/11/23 07:52 Interval history: chart reviewed. No new complaints. Feels better. No chest pain or shortness of breath. Telemetry reviewed. Review of Systems Review of Systems: All systems reviewed & are unremarkable except as noted in HPI and below Exam Narrative: GENERAL: The patient is well developed, not in acute distress HEENT: Nonicteric sclerae, PERRLA, EOMI. Oropharynx clear. Moist mucous membranes. Conjunctivae appear well perfused. CHEST: Chest wall is nontender. HEART: Regular rate and rhythm without murmur, rubs, or gallops LUNGS: Clear to auscultation bilaterally. no respiratory distress ABDOMEN: Soft, positive bowel sounds, non-tender, no organomegaly. SKIN: No rash, no excessive bruising, petechiae, or purpura. NEUROLOGIC: Cranial nerves II-XII intact, alert and oriented x 3, no gross motor deficits EXTREMITIES: no edema, cyanosis or clubbing Objective Data Vital Signs Vital Signs: Vital Signs - 24 hr 08/10/23 08:03 08/10/23 08:00 08/10/23 11:53 Temperature 98.5 F Pulse Rate 95 106 H Respiratory Rate 20 Blood Pressure 109/69 Pulse Oximetry 95 95 Oxygen Delivery Room Air Fraction of Inspired Oxygen 21 08/10/23 12:00 08/10/23 08:00
--- NOTE | 2023-08-11 08:51 | PM.PNCARD ---
Progress Note: A&P Assessment and Plan (1) Atrial dysrhythmia: Code(s): I49.8 - Other specified cardiac arrhythmias Status: Acute Plan 78-year-old lady with atrial flutter well rate controlled with metoprolol and will continue to follow this with you. As mentioned in my previous note she is a poor candidate for anticoagulation in my opinion. Will at least follow while she is in the hospital. Not sure with the plans are in terms of performing a biopsy of her hepatic lesion Kwaku Mendez MD [facility] Subjective Date/time seen: Date of service: 08/11/23 08:51 Interval history: Follow-up visit in this 78-year-old woman with: Atrial flutter with rapid ventricular response which is newly diagnosed during this admission. Patient is frail with frequent falling and therefore not felt to be a candidate for anticoagulation. Started on metoprolol for rate control. Also found to have evidence of abdominal pathology suspicious for recurrent pancreatic adenocarcinoma. Notes indicate concept of planning for liver biopsy. 08/11/2023: She is feeling reasonably well this morning she is very anxious and frightened about having a liver biopsy performed. I do not see specific information in the chart as to when that might happen. Telemetry demonstrates well controlled atrial flutter after being started on metoprolol. Exam Const: General: comfortable and no acute distress Other: Pleasant elderly lady eating her breakfast no distress HENMT: Mouth: Yes moist mucous membranes Eyes: Sclera: sclerae normal Neck: Neck: supple Resp: Effort & Inspection: normal respiratory effort Other: Scattered rhonchi, otherwise largely clear breath sounds Cardio: Rhythm: abnormal rhythm irregularly irregular Other: Heart rate 95-105, GI: GI Palp: Yes Soft to palpation Auscultation: normal bowel sounds Skin: General skin exam: normal color Neuro: Other: Alert and oriented x3 Objective Data Vital Signs Vital Signs: Vital Signs - 24 hr 08/10/23 11:53 08/10/23 12:00 08/10/23 12:00 Temperature 37.1 C Pulse Rate 106 H 67 Respiratory Rate 20 Blood Pressure 129/89 Pulse Oximetry 100 Oxygen Delivery Room Air 08/10/23 10:00 08/10/23 12:00 08/10/23 14:00 Temperature Pulse Rate 103 H 130 H 106 H Respiratory Rate Blood Pressure Pulse Oximetry Oxygen Delivery 08/10/23 16:00 08/10/23 16:00 08/10/23 16:00 Temperature 36.7 C Pulse Rate 78 100 Respiratory Rate 16 Blood Pressure 115/78 Pulse Oximetry 95 Oxygen Delivery Room Air 08/10/23 18:00 08/10/23 19:48 08/10/23 23:36 Temperature 36.3 C L 36.4 C L Pulse Rate 118 H 97 77 Respiratory Rate 22 H 18 Blood Pressure 132/72 135/97 H Pulse Oximetry 100 92 Oxygen Delivery 08/10/23 20:00 08/11/23 00:00 08/10/23 20:00 Temperature Pulse Rate 99 Respiratory Rate Blood Pressure Pulse Oximetry 92 92 Oxygen Delivery Room Air Room Air 08/10/23 22:00 08/11/23 00:00 08/11/23 02:00 Temperature Pulse Rate 118 H 105 H 93 Respiratory Rate Blood Pressure Pulse Oximetry Oxygen Delivery 08/10/23 22:23 08/11/23 04:54 08/11/23 04:00 Temperature 36.3 C L Pulse Rate 104 H Respiratory Rate 18 Blood Pressure 122/62 Pulse Oximetry 93 94 94 Oxygen Delivery Room Air Room Air 08/11/23 04:00 08/11/23 06:00 08/11/23 07:54 Temperature 35.9 C L Pulse Rate 88 84 101 H Respiratory Rate 18 Blood Pressure 154/73 H Pulse Oximetry 97 Oxygen Delivery Intake/Output Intake/Output: Intake & Output 08/08/23 08/09/23 08/10/23 08/11/23 23:59 23:59 23:59 23:59 Intake Total 1050 2950 1200 Output Total 400 900 Balance 1050 2550 300 Meds/Results Medications: Active Medications Generic Name Dose Route Start Last Admin Trade Name Freq PRN Reason Stop Dose Admin Ceftriaxone Sodium 1 gm in 50 mls @ 100 mls/hr 08/10/23 09:00 08/10/23
[2023-08-11] MEDS: METOPROLOL SUCCINATE EXT REL 50 MG TABCR PO (09:02)
[2023-08-11 09:17] LABS: Basophils Percent Auto 0.4 % (0.2-1.2); Eosinophils Absolute Auto 0.1 K/mm3 (0-0.3); Eosinophils Percent Auto 0.9 % (0-4.4); Hematocrit 36.1 % (37.0-47.0); Hemoglobin 11.8 g/dL (12.0-15.0); Immature Granulocyte Absolute 0.07 K/mm3 (0.00-0.031); Immature Granulocyte Percent A 0.8 % (0-0.5); Lymphocytes Absolute Auto 1.13 K/mm3 (0.9-3.2); Lymphocytes Percent Auto 12.2 % (18.3-44.2); Mean Corpuscular HGB Conc 32.7 g/dl (32-36); Mean Corpuscular Hemoglobin 28.2 pg (26-34); Mean Corpuscular Volume 86.4 fl (80-100); Mean Platelet Volume 11.1 fl (7.4-10.4); Monocytes Absolute Auto 0.5 K/mm3 (0.1-0.6); Monocytes Percent Auto 5.2 % (2.6-8.5); Neutrophils Absolute Auto 7.5 K/mm3 (1.3-6.7); Neutrophils Percent Auto 80.5 % (45.5-73.1); Platelet Count Result 361 k/mm3 (150-375); Red Blood Count 4.18 M/mm3 (4.2-5.4); Red Cell Distribution Width 16.4 % (11.5-14.5); White Blood Count 9.3 K/mm3 (4.5-10.0)
[2023-08-11 09:30] LABS: Creatine Kinase 228 U/L (30-135)
[2023-08-11 09:31] LABS: Alanine Aminotransferase 32 U/L (6-35); Albumin Level 3.2 g/dL (3.5-5.1); Alkaline Phosphatase 135 U/L (38-126); Anion Gap 5 mmol/L (4-12); Aspartate Amino Transferase 49 U/L (14-36); Bilirubin,Total 1.2 mg/dL (0.2-1.3); Blood Urea Nitrogen 6 mg/dL (7-17); Calcium 8.3 mg/dL (8.4-10.2); Carbon Dioxide 23 mmol/L (22-30); Chloride 110 mmol/L (98-107); Estimated CRCL calculation 66 ml/min; Estimated Glomerular Filt Rate > 60; Glucose 137 mg/dL (65-110); Magnesium 1.7 mg/dL (1.6-2.3); Potassium 3.6 mmol/L (3.4-5.0); Sodium 138 mmol/L (137-145)
[2023-08-11] MEDS: LATANOPROST 0.005% OP SOLN 2.5 ML BTL 1 DROP EACH EYE (20:56)
[2023-08-12] VITALS (11 sets, daily range): BP systolic 104–149; BP diastolic 63–95; PULSE 77–127; RESP 16–20; TEMP 35.7–36.9; O2SAT 95–97
[2023-08-12 04:43] LABS: Basophils Percent Auto 0.5 % (0.2-1.2); Eosinophils Absolute Auto 0.1 K/mm3 (0-0.3); Eosinophils Percent Auto 1.1 % (0-4.4); Hemoglobin 11.3 g/dL (12.0-15.0); Immature Granulocyte Absolute 0.03 K/mm3 (0.00-0.031); Immature Granulocyte Percent A 0.4 % (0-0.5); Lymphocytes Absolute Auto 1.62 K/mm3 (0.9-3.2); Lymphocytes Percent Auto 19.3 % (18.3-44.2); Mean Corpuscular HGB Conc 33.2 g/dl (32-36); Mean Corpuscular Volume 84.2 fl (80-100); Mean Platelet Volume 10.8 fl (7.4-10.4); Monocytes Absolute Auto 0.6 K/mm3 (0.1-0.6); Neutrophils Percent Auto 71.7 % (45.5-73.1); Platelet Count Result 306 k/mm3 (150-375); Red Blood Count 4.04 M/mm3 (4.2-5.4); Red Cell Distribution Width 16.1 % (11.5-14.5); White Blood Count 8.4 K/mm3 (4.5-10.0)
[2023-08-12 05:16] LABS: Alanine Aminotransferase 37 U/L (6-35); Albumin Level 2.8 g/dL (3.5-5.1); Alkaline Phosphatase 140 U/L (38-126); Anion Gap 2 mmol/L (4-12); Aspartate Amino Transferase 51 U/L (14-36); Bilirubin,Total 1.2 mg/dL (0.2-1.3); Blood Urea Nitrogen 7 mg/dL (7-17); Calcium 8.5 mg/dL (8.4-10.2); Carbon Dioxide 26 mmol/L (22-30); Chloride 111 mmol/L (98-107); Estimated CRCL calculation 66 ml/min; Estimated Glomerular Filt Rate > 60; Glucose 93 mg/dL (65-110); Magnesium 1.7 mg/dL (1.6-2.3); Potassium 2.8 mmol/L (3.4-5.0); Sodium 139 mmol/L (137-145)
[2023-08-12] MEDS: POTASSIUM CHLORIDE INJ 40 MEQ in SODIUM CHLORIDE 0.9% IV 500 ML 130 MEQ IVPB (05:50)
[2023-08-12] MEDS: POTASSIUM CHLORIDE 20 MEQ ER TABLET 40 MEQ PO (05:51)
[2023-08-12] MEDS: LEVOTHYROXINE SODIUM 25 MCG TABLET PO (05:51)
[2023-08-12 08:50] LABS: Mean Platelet Volume 10.5 fl (7.4-10.4); Platelet Count Result 340 k/mm3 (150-375)
[2023-08-12 09:12] LABS: INR 1.2; Prothrombin Time 15.2 Seconds (11.1-14.7)
[2023-08-12] MEDS: METOPROLOL SUCCINATE EXT REL 50 MG TABCR PO (11:58)
--- NOTE | 2023-08-12 12:28 | PM.IMPN ---
Progress Note: A&P Assessment and Plan (1) Pancreatic mass: Code(s): K86.89 - Other specified diseases of pancreas Status: Acute (2) Rhabdomyolysis: Qualifiers: Rhabdomyolysis type: non-traumatic Qualified Code(s): M62.82 - Rhabdomyolysis Code(s): M62.82 - Rhabdomyolysis Status: Acute (3) Transaminitis: Code(s): R74.01 - Elevation of levels of liver transaminase levels Status: Acute (4) Elevated troponin: Code(s): R79.89 - Other specified abnormal findings of blood chemistry Status: Acute (5) Atrial dysrhythmia: Code(s): I49.8 - Other specified cardiac arrhythmias Status: Acute (6) Acute UTI: Code(s): N39.0 - Urinary tract infection, site not specified Status: Acute Plan Patient here with multiple medical problems. Has had recurrent falls and found down at home. no obvious injury reported. Had a very old bruised right side of her forehead. She does not recall the fall. ED vitals were stable. Patient nontoxic Laboratory evaluation showed WBC count of 14 K hemoglobin of 14 platelets 399 sodium 139 potassium was low at 2.9 chloride 103 BUN 10 creatinine 0.5. Total bilirubin 1.8 mild elevated liver enzymes with alkaline phosphorus 160 urinalysis showed cloudy urine with 1+ protein 1+ ketone 1+ blood nitrate positive 6-10 WBC and 4+ bacteria. CT brain showed old infarct with no acute findings. CT cervical spine showed moderate spondylosis. CT lumbar spine shows severe spondylosis. CT abdomen pelvis showed suspected prior distal pancreatectomy with somewhat ill-defined 2.2 x 2.4 subcentimeter probable mass at the surgical margin suspicious for residual/ recurrent pancreatic adenocarcinoma. 1.3 cm hypodense right hepatic lesion also suspicious for metastatic. Possible cystitis. Patient reports no history of pancreatectomy or any surgery on pancreas in the past. CK level was elevated at 1066.Troponin mildly elevated at 0.072. serial troponin flat. Initial EKG showed atrial flutter tachycardia with RVR moderate ST depression. Echo showed normal appearing left ventricular systolic function. Atrial flutter. Atrial flutter asymptomatic metoprolol started for rate control strategy due to recurrent fall not a candidate for anticoagulation . TSH normal Recurrent fall Hypokalemia replace and monitor Rhabdomyolysis Elevated liver enzymes new ill-defined mass the pancreas and liver lesion biopsy of the liver lesion planned today UTI ceftriaxone urine culture with coag-negative staph not saprophyticus Elevated troponin likely demand ischemia echo Reviewed . Cardiology consulted Diet: Heart healthy GI Prophylaxis: Not indicated DVT Prophylaxis: SCDs Lines: Peripheral Code Status: full code, surrogate decision maker Susannah Kent (sister) Subjective Date/time seen: 08/12/23 12:28 Interval history: No overnight event. Going for a biopsy today. Denies any complaints. Review of Systems Review of Systems: All systems reviewed & are unremarkable except as noted in HPI and below Exam Narrative: GENERAL: The patient is well developed, not in acute distress HEENT: Nonicteric sclerae, PERRLA, EOMI. Oropharynx clear. Moist mucous membranes. Conjunctivae appear well perfused. CHEST: Chest wall is nontender. HEART: Regular rate and rhythm without murmur, rubs, or gallops LUNGS: Clear to auscultation bilaterally. no respiratory distress ABDOMEN: Soft, positive bowel sounds, non-tender, no organomegaly. SKIN: No rash, no excessive bruising, petechiae, or purpura. NEUROLOGIC: Cranial nerves II-XII intact, alert and oriented x 3, no gross motor deficits EXTREMITIES: no edema, cyanosis or clubbing Objective Data Vital Signs Vital Signs: Vital Signs - 24 hr 08/11/23 14:00 08/11/23 15:31 08/11/23 16:00 Temperature 97.9 F Pulse Rate 85 86 79 Respiratory Rate 20 Blood Pressure 162/85 H Pulse Oximetry 96 Oxygen Delivery
--- NOTE | 2023-08-12 12:44 | PC.NURSE ---
This patient, Zia Sandhu, was received from [[id number]] on 08/12/23 at 1240. Patient/family oriented to unit policies and routines. Report from Britany.
[2023-08-12] MEDS: MAGNESIUM SULF 1 GM/D5W 100 ML 1 GM/100 ML BAG IVPB (12:57)
[2023-08-12] MEDS: LATANOPROST 0.005% OP SOLN 2.5 ML BTL 1 DROP EACH EYE (20:45)
[2023-08-13 04:49] VITALS: BP 137/74; PULSE 104; RESP 16; TEMP 36.7; O2SAT 96
[2023-08-13] MEDS: LEVOTHYROXINE SODIUM 25 MCG TABLET PO (05:31)
[2023-08-13 06:52] LABS: Alanine Aminotransferase 41 U/L (6-35); Albumin Level 2.8 g/dL (3.5-5.1); Alkaline Phosphatase 144 U/L (38-126); Anion Gap 2 mmol/L (4-12); Aspartate Amino Transferase 54 U/L (14-36); Bilirubin,Total 0.7 mg/dL (0.2-1.3); Blood Urea Nitrogen 7 mg/dL (7-17); Calcium 8.3 mg/dL (8.4-10.2); Carbon Dioxide 24 mmol/L (22-30); Chloride 112 mmol/L (98-107); Estimated CRCL calculation 66 ml/min; Estimated Glomerular Filt Rate > 60; Glucose 99 mg/dL (65-110); Magnesium 1.9 mg/dL (1.6-2.3); Potassium 3.3 mmol/L (3.4-5.0); Sodium 138 mmol/L (137-145)
[2023-08-13 06:53] LABS: Basophils Percent Auto 0.6 % (0.2-1.2); Eosinophils Absolute Auto 0.2 K/mm3 (0-0.3); Eosinophils Percent Auto 2.7 % (0-4.4); Hematocrit 31.9 % (37.0-47.0); Hemoglobin 10.6 g/dL (12.0-15.0); Immature Granulocyte Absolute 0.04 K/mm3 (0.00-0.031); Immature Granulocyte Percent A 0.6 % (0-0.5); Lymphocytes Absolute Auto 1.33 K/mm3 (0.9-3.2); Lymphocytes Percent Auto 19.6 % (18.3-44.2); Mean Corpuscular HGB Conc 33.2 g/dl (32-36); Mean Corpuscular Volume 84.2 fl (80-100); Mean Platelet Volume 10.5 fl (7.4-10.4); Monocytes Absolute Auto 0.5 K/mm3 (0.1-0.6); Monocytes Percent Auto 7.5 % (2.6-8.5); Neutrophils Absolute Auto 4.7 K/mm3 (1.3-6.7); Platelet Count Result 321 k/mm3 (150-375); Red Blood Count 3.79 M/mm3 (4.2-5.4); Red Cell Distribution Width 16.4 % (11.5-14.5); White Blood Count 6.8 K/mm3 (4.5-10.0)
--- NOTE | 2023-08-13 08:44 | PM.IMPN ---
Progress Note: A&P Assessment and Plan (1) Pancreatic mass: Code(s): K86.89 - Other specified diseases of pancreas Status: Acute (2) Rhabdomyolysis: Qualifiers: Rhabdomyolysis type: non-traumatic Qualified Code(s): M62.82 - Rhabdomyolysis Code(s): M62.82 - Rhabdomyolysis Status: Acute (3) Transaminitis: Code(s): R74.01 - Elevation of levels of liver transaminase levels Status: Acute (4) Elevated troponin: Code(s): R79.89 - Other specified abnormal findings of blood chemistry Status: Acute (5) Atrial dysrhythmia: Code(s): I49.8 - Other specified cardiac arrhythmias Status: Acute (6) Acute UTI: Code(s): N39.0 - Urinary tract infection, site not specified Status: Acute Plan Patient here with multiple medical problems. Has had recurrent falls and found down at home. no obvious injury reported. Had a very old bruised right side of her forehead. She does not recall the fall. ED vitals were stable. Patient nontoxic Laboratory evaluation showed WBC count of 14 K hemoglobin of 14 platelets 399 sodium 139 potassium was low at 2.9 chloride 103 BUN 10 creatinine 0.5. Total bilirubin 1.8 mild elevated liver enzymes with alkaline phosphorus 160 urinalysis showed cloudy urine with 1+ protein 1+ ketone 1+ blood nitrate positive 6-10 WBC and 4+ bacteria. CT brain showed old infarct with no acute findings. CT cervical spine showed moderate spondylosis. CT lumbar spine shows severe spondylosis. CT abdomen pelvis showed suspected prior distal pancreatectomy with somewhat ill-defined 2.2 x 2.4 subcentimeter probable mass at the surgical margin suspicious for residual/ recurrent pancreatic adenocarcinoma. 1.3 cm hypodense right hepatic lesion also suspicious for metastatic. Possible cystitis. Patient reports no history of pancreatectomy or any surgery on pancreas in the past. CK level was elevated at 1066.Troponin mildly elevated at 0.072. serial troponin flat. Initial EKG showed atrial flutter tachycardia with RVR moderate ST depression. Echo showed normal appearing left ventricular systolic function. Atrial flutter. Atrial flutter asymptomatic metoprolol started for rate control strategy due to recurrent fall not a candidate for anticoagulation . 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 Await pathology. Will check CA 19 UTI ceftriaxone urine culture with coag-negative staph not saprophyticus. antibiotics switched to cephalexin . Finish the course as ordered Elevated troponin likely demand ischemia echo Reviewed . Cardiology consulted Diet: Heart healthy GI Prophylaxis: Not indicated DVT Prophylaxis: SCDs Lines: Peripheral Code Status: full code, surrogate decision maker Susannah Kent (sister) Subjective Date/time seen: 08/13/23 08:44 Interval history: no overnight events. No new complaints. Left-sided weakness. Wants to go back home. Biopsy was performed yesterday. Review of Systems Review of Systems: All systems reviewed & are unremarkable except as noted in HPI and below Exam Narrative: GENERAL: The patient is well developed, not in acute distress HEENT: Nonicteric sclerae, PERRLA, EOMI. Oropharynx clear. Moist mucous membranes. Conjunctivae appear well perfused. CHEST: Chest wall is nontender. HEART: Regular rate and rhythm without murmur, rubs, or gallops LUNGS: Clear to auscultation bilaterally. no respiratory distress ABDOMEN: Soft, positive bowel sounds, non-tender, no organomegaly. SKIN: No rash, no excessive bruising, petechiae, or purpura. NEUROLOGIC: Cranial nerves II-XII intact, alert and oriented x 3, no gross motor deficits Left-sided weakness which is
[2023-08-13] MEDS: METOPROLOL SUCCINATE EXT REL 50 MG TABCR PO (09:20)
[2023-08-13] MEDS: CEPHALEXIN 500 MG CAPSULE PO ×2 (09:21→20:01)
[2023-08-13] MEDS: POTASSIUM CHLORIDE 20 MEQ ER TABLET 40 MEQ PO (09:21)
[2023-08-13 14:00] VITALS: BP 110/83; PULSE 84; RESP 18; TEMP 35.9; O2SAT 92
[2023-08-13] MEDS: LATANOPROST 0.005% OP SOLN 2.5 ML BTL 1 DROP EACH EYE (20:06)
[2023-08-13 20:10] VITALS: BP 122/81; PULSE 122; RESP 18; TEMP 36; O2SAT 98
[2023-08-14 05:10] VITALS: BP 116/82; PULSE 122; RESP 20; TEMP 36.7; O2SAT 97
[2023-08-14 06:16] LABS: Basophils Absolute Auto 0.1 K/mm3 (0.0-0.1); Basophils Percent Auto 0.6 % (0.2-1.2); Eosinophils Absolute Auto 0.2 K/mm3 (0-0.3); Eosinophils Percent Auto 2.4 % (0-4.4); Hematocrit 32.7 % (37.0-47.0); Hemoglobin 10.9 g/dL (12.0-15.0); Immature Granulocyte Absolute 0.05 K/mm3 (0.00-0.031); Immature Granulocyte Percent A 0.6 % (0-0.5); Lymphocytes Absolute Auto 1.48 K/mm3 (0.9-3.2); Lymphocytes Percent Auto 18.8 % (18.3-44.2); Mean Corpuscular HGB Conc 33.3 g/dl (32-36); Mean Corpuscular Hemoglobin 28.4 pg (26-34); Mean Corpuscular Volume 85.2 fl (80-100); Mean Platelet Volume 10.6 fl (7.4-10.4); Monocytes Absolute Auto 0.6 K/mm3 (0.1-0.6); Monocytes Percent Auto 7.4 % (2.6-8.5); Neutrophils Absolute Auto 5.5 K/mm3 (1.3-6.7); Neutrophils Percent Auto 70.2 % (45.5-73.1); Platelet Count Result 367 k/mm3 (150-375); Red Blood Count 3.84 M/mm3 (4.2-5.4); Red Cell Distribution Width 16.6 % (11.5-14.5); White Blood Count 7.9 K/mm3 (4.5-10.0)
[2023-08-14] MEDS: LEVOTHYROXINE SODIUM 25 MCG TABLET PO (06:21)
[2023-08-14 06:32] LABS: Iron 32 ug/dL (37-170)
[2023-08-14 06:33] LABS: Alanine Aminotransferase 41 U/L (6-35); Albumin Level 2.9 g/dL (3.5-5.1); Alkaline Phosphatase 160 U/L (38-126); Anion Gap 3 mmol/L (4-12); Aspartate Amino Transferase 47 U/L (14-36); Bilirubin,Total 0.8 mg/dL (0.2-1.3); Blood Urea Nitrogen 7 mg/dL (7-17); Calcium 8.5 mg/dL (8.4-10.2); Carbon Dioxide 24 mmol/L (22-30); Chloride 110 mmol/L (98-107); Estimated CRCL calculation 66 ml/min; Estimated Glomerular Filt Rate > 60; Glucose 102 mg/dL (65-110); Magnesium 1.8 mg/dL (1.6-2.3); Potassium 3.7 mmol/L (3.4-5.0); Sodium 137 mmol/L (137-145)
[2023-08-14 06:42] LABS: Percent Iron Saturation 13 % (20-50)
[2023-08-14] MEDS: IRON SUCROSE COMPLEX 500 MG in SODIUM CHLORIDE 0.9% IV 250 ML 79 MG IVPB (09:22)
[2023-08-14] MEDS: METOPROLOL SUCCINATE EXT REL 50 MG TABCR PO (09:23)
[2023-08-14] MEDS: CEPHALEXIN 500 MG CAPSULE PO ×2 (09:23→21:09)
[2023-08-14] MEDS: FERROUS SULFATE 325 MG TABLET DR PO ×2 (09:23→17:06)
--- NOTE | 2023-08-14 10:12 | PDONCCN ---
HPI - Date of Consult Date/Time: 08/14/23 17:16 <Albino Gallardo - 08/14/23 17:18> 08/14/23 10:12 <Christal Goldberg - 08/14/23 10:14> Requesting Physician: Andre Acosta MD <Albino Gallardo - 08/14/23 17:18> Andre cAosta MD <Christal Goldberg - 08/14/23 10:14> Primary Care Provider: Ihsan Crenshaw MD <Albino Gallardo - 08/14/23 17:18> Ihsan Crenshaw MD <Christal Goldberg - 08/14/23 10:14> - Consult Narrative Reason for consult: Pancreatic Cancer <Christal Goldberg - 08/14/23 10:14> Narrative: Zia Sandhu is a 78 year old female <Albino Gallardo - 08/14/23 17:18> Zia Sandhu is a 78 year old female with a past medical history of CVA, glaucoma, and hypothyroidism, who was admitted to the hospital for a fall. She had a work up for the fall which revealed CT of the abdomen/pelvis showed a somewhat ill-defined probable mass at the surgical margin of a suspected prior distal pancreatectomy, 1.3 hypodense right hepatic lobe lesion suspicious for metastasis, and possible cystitis. A liver biopsy was completed which is positive for metastatic well differentiated pancreatic adenocarcinoma, likely primary site is pancreatic. Patient denies any fatigue, shortness of breath, bleeding, abdominal pain, n/v/d. She does report some weight loss overtime but does not step on katherine scale often. She does have night sweats as well. She has never had a colonoscopy, denies any bleeding, reports a fair diet, but patient seems to be malnourished as well with profusion of clavicle. She lives by herself with 1 dog and 2 cats. She has HH 3x a week. She is adopted and does not know her family history. Patient does seem to be a very poor historian about health and continues to repeat that she wants to go home to her 3 yr old dog. Labs today are notable for WBC 7.9, Hgb 10.9, Hct 32, Plt 367, Iron % sat 13 B12 842. <Christal Goldberg 08/14/23 10:22> Review of Systems - Review of Systems All systems reviewed & are unremarkable except as noted in HPI and bel <YusufChristal 08/14/23 10:22> [facility] Medical History: Medical History (Last Reviewed 08/09/23 @ 16:32 by Mey Warner APRN) CVA (cerebral vascular accident) Onset Date: ~1969 In right MCA territory with left-sided weakness Hypothyroidism <Albino Gallardo - 08/14/23 17:18> Medical History (Last Reviewed 08/09/23 @ 16:32 by Mey Warner APRN) CVA (cerebral vascular accident) Onset Date: ~1969 In right MCA territory with left-sided weakness Hypothyroidism <YusufChristal 08/14/23 10:14> Surgical History: Surgical History (Last Reviewed 08/09/23 @ 16:32 by Mey Warner APRN) No significant past surgical history <Albino Gallardo - 08/14/23 17:18> Surgical History (Last Reviewed 08/09/23 @ 16:32 by Mey Warner APRN) No significant past surgical history <Christal Goldberg - 08/14/23 10:14> - Social History Social History: Social History (Last Reviewed 08/09/23 @ 16:32 by Mey Warner APRN) Alcohol Use: Alcohol intake: never Substance Use: Substance use: never Others: Spiritual care concerns: No Smoking Status: Smoking status: Former smoker Tobacco type: cigarettes Smoking Pack-years: Smoking packs per day: 2 Smoking cigarettes per day: 40.0 Years smoked: 30 Smoking pack-years: 60.00 Social Determinants of Health: Do You Feel Safe in your Home?: Yes Has the Lack of Transportation Kept You From Medical Appointments or From Getting Medications?: No Within the Past 12 Months, Were You Worried Whether Your Food Would Run Out Before You Got Money to Buy More?: Never True What is Your Housing Situation Today?: I Have Housing Are You Worried That in the Next 2 Months, You May Not Have Your Own Housing to Live In?: No Do You Have Trouble Paying Your Heating Or Electrici
[2023-08-14 13:59] VITALS: BP 123/80; PULSE 125; RESP 16; TEMP 35.9; O2SAT 95
--- NOTE | 2023-08-14 13:59 | PM.IMPN ---
Progress Note: A&P Assessment and Plan (1) Pancreatic mass: Code(s): K86.89 - Other specified diseases of pancreas Status: Acute (2) Rhabdomyolysis: Qualifiers: Rhabdomyolysis type: non-traumatic Qualified Code(s): M62.82 - Rhabdomyolysis Code(s): M62.82 - Rhabdomyolysis Status: Acute (3) Transaminitis: Code(s): R74.01 - Elevation of levels of liver transaminase levels Status: Acute (4) Elevated troponin: Code(s): R79.89 - Other specified abnormal findings of blood chemistry Status: Acute (5) Atrial dysrhythmia: Code(s): I49.8 - Other specified cardiac arrhythmias Status: Acute (6) Acute UTI: Code(s): N39.0 - Urinary tract infection, site not specified Status: Acute Plan Pancreatic mass/adenocarcinoma Biopsy completed likely pancreatic primary Oncology consult in Need family/patient discussion on treatment vs palliative VS hospice Liver enzymes mildly elevated Falls/weakness/rhabdomyolysis multiple falls PT/OT trend CK levels IV fluids HX of stroke with LT sided weakness D/C home anticoagulation not a candidate due to frequent falls UTI Urine cultures Continue IV hydration. Monitor CBC, CMP watch for sepsis. Monitor vital signs. urine culture with coag-negative staph not saprophyticus. antibiotics switched to cephalexin Anemia Iron panel Iron IV x 1 Start PO Ferrous Sulfate Elevated Troponin Appears to be secondary to ischemic demand Cardiology was consulted Echocardiogram reviewed BP added ACS R/U HX hypothyroidism: Resumed levothyroxine Code status: Full code per patient DVT prophylaxis: SCD's Stress ulcer prophylaxis: Protonix 40 daily PT/OT notes: SNF Disposition: Patient continues admissions to the medical unit patient made aware new diagnosis of pancreatic metastatic adeno carcinoma. Care coordination current working on rehab/SNF placement for discharge. Patient to follow-up with oncologist outpatient if further treatment is wanted. Time Spent With Patient Time with patient: 15 - 25 minutes Subjective Date/time seen: 08/14/23 13:59 Interval history: Admission: Medical Chart 78 y/o F presents here after a ground level fall with PMH of CVA (MCA region, residual LUE weakness, 1971), glaucoma, and hypothyroidism. The patient presents here from home via EMS after she sustained a ground level fall overnight. The patient reports that she woke up on the floor last night, unsure how she fell (mechanical versus syncope). She was unable to get up off the floor and laid there all night. Reports incontinence this morning. Now reporting low back pain after fall, pain is nonradiating, and diffuse. Patient seen at [place] [facility] on 08/02/2023 for similar presentation. Family found her on the floor and we were concerned she was confused. Upon arrival to the ED she was alert and orientated x3. Her CK was elevated then at 1512. Patient had decision-making capacity and elected to be discharged and orally rehydrate. Denies unintentional weight loss or easy bleeding/bruising. Endorses occasional night sweats. No prior history of cancer. Patient is adopted so unknown family history of cancer. Initial VS at presentation: 97.4? F, HR 100, RR 16, 146/97, and 96% on RA. ED workup showed: WBC 14.4, no anemia, potassium 2.9, creatinine 0.5 and GFR >60, glucose 122, total bilirubin 1.8, AST 65, ALT 38, ammonia <9, CK 1066, initial troponin 0.072, and UA consistent with UTI. 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 6
[2023-08-14 15:13] LABS: CA 19-9 1727 U/mL (<34)
--- NOTE | 2023-08-14 15:49 | PCPTNOTE ---
Attempted to see patient for PT, however patient declined. Patient reported she got some bad news today and has too much on her mind to participate with PT.
[2023-08-14] MEDS: LATANOPROST 0.005% OP SOLN 2.5 ML BTL 1 DROP EACH EYE (21:11)
[2023-08-14 21:20] VITALS: BP 116/75; PULSE 76; RESP 16; TEMP 36.8; O2SAT 92
[2023-08-15 06:00] VITALS: BP 107/90; PULSE 65; RESP 16; TEMP 36.4; O2SAT 92
[2023-08-15] MEDS: LEVOTHYROXINE SODIUM 25 MCG TABLET PO (06:25)
[2023-08-15 08:00] VITALS: PULSE 131; O2SAT 97
[2023-08-15] MEDS: CEPHALEXIN 500 MG CAPSULE PO ×2 (09:49→20:41)
[2023-08-15 09:50] VITALS: PULSE 151
[2023-08-15] MEDS: METOPROLOL SUCCINATE EXT REL 50 MG TABCR PO (09:50)
[2023-08-15] MEDS: FERROUS SULFATE 325 MG TABLET DR PO ×2 (09:50→17:34)
[2023-08-15 10:09] LABS: Hematocrit 37.7 % (37.0-47.0); Hemoglobin 12.2 g/dL (12.0-15.0); Mean Corpuscular HGB Conc 32.4 g/dl (32-36); Mean Corpuscular Hemoglobin 28.1 pg (26-34); Mean Corpuscular Volume 86.9 fl (80-100); Mean Platelet Volume 10.5 fl (7.4-10.4); Platelet Count Result 448 k/mm3 (150-375); Red Blood Count 4.34 M/mm3 (4.2-5.4); White Blood Count 7.4 K/mm3 (4.5-10.0)
[2023-08-15 10:25] LABS: Alanine Aminotransferase 40 U/L (6-35); Albumin Level 3.6 g/dL (3.5-5.1); Alkaline Phosphatase 171 U/L (38-126); Anion Gap 6 mmol/L (4-12); Aspartate Amino Transferase 45 U/L (14-36); Bilirubin,Total 0.7 mg/dL (0.2-1.3); Blood Urea Nitrogen 7 mg/dL (7-17); Calcium 9.3 mg/dL (8.4-10.2); Carbon Dioxide 31 mmol/L (22-30); Chloride 104 mmol/L (98-107); Estimated CRCL calculation 56 ml/min; Estimated Glomerular Filt Rate > 60; Glucose 133 mg/dL (65-110); Potassium 3.7 mmol/L (3.4-5.0); Sodium 141 mmol/L (137-145)
--- NOTE | 2023-08-15 11:41 | PM.IMPN ---
Progress Note: A&P Assessment and Plan (1) Pancreatic mass: Code(s): K86.89 - Other specified diseases of pancreas Status: Acute (2) Rhabdomyolysis: Qualifiers: Rhabdomyolysis type: non-traumatic Qualified Code(s): M62.82 - Rhabdomyolysis Code(s): M62.82 - Rhabdomyolysis Status: Acute (3) Transaminitis: Code(s): R74.01 - Elevation of levels of liver transaminase levels Status: Acute (4) Elevated troponin: Code(s): R79.89 - Other specified abnormal findings of blood chemistry Status: Acute (5) Atrial dysrhythmia: Code(s): I49.8 - Other specified cardiac arrhythmias Status: Acute (6) Acute UTI: Code(s): N39.0 - Urinary tract infection, site not specified Status: Acute Plan Pancreatic mass/adenocarcinoma Biopsy completed likely pancreatic primary Oncology consult in Follow-up O/P with Oncology if treatment is wanted Liver enzymes mildly elevated Falls/weakness/rhabdomyolysis multiple falls PT/OT trend CK levels IV fluids HX of stroke with LT sided weakness D/C home anticoagulation not a candidate due to frequent falls UTI Urine cultures Continue IV hydration. Monitor CBC, CMP watch for sepsis. Monitor vital signs. urine culture with coag-negative staph not saprophyticus. antibiotics switched to cephalexin Anemia Iron panel Iron IV x 1 Start PO Ferrous Sulfate Elevated Troponin Appears to be secondary to ischemic demand Cardiology was consulted Echocardiogram reviewed BP added ACS R/U HX hypothyroidism: Resumed levothyroxine Code status: Full code per patient DVT prophylaxis: SCD's Stress ulcer prophylaxis: Protonix 40 daily PT/OT notes: SNF Disposition: Patient continues admissions to the medical unit patient made aware new diagnosis of pancreatic metastatic adeno carcinoma. Care coordination current working on rehab/SNF placement for discharge. Patient to follow-up with oncologist outpatient if further treatment is wanted. Time Spent With Patient Time with patient: 15 - 25 minutes Subjective Date/time seen: 08/15/23 11:41 Interval history: Admission: Medical Chart 78 y/o F presents here after a ground level fall with PMH of CVA (MCA region, residual LUE weakness, 1971), glaucoma, and hypothyroidism. The patient presents here from home via EMS after she sustained a ground level fall overnight. The patient reports that she woke up on the floor last night, unsure how she fell (mechanical versus syncope). She was unable to get up off the floor and laid there all night. Reports incontinence this morning. Now reporting low back pain after fall, pain is nonradiating, and diffuse. Patient seen at [place] on 08/02/2023 for similar presentation. Family found her on the floor and we were concerned she was confused. Upon arrival to the ED she was alert and orientated x3. Her CK was elevated then at 1512. Patient had decision-making capacity and elected to be discharged and orally rehydrate. Denies unintentional weight loss or easy bleeding/bruising. Endorses occasional night sweats. No prior history of cancer. Patient is adopted so unknown family history of cancer. Initial VS at presentation: 97.4? F, HR 100, RR 16, 146/97, and 96% on RA. ED workup showed: WBC 14.4, no anemia, potassium 2.9, creatinine 0.5 and GFR >60, glucose 122, total bilirubin 1.8, AST 65, ALT 38, ammonia <9, CK 1066, initial troponin 0.072, and UA consistent with UTI. 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 08/13: Assumed Care
--- NOTE | 2023-08-15 13:06 | PM.DS ---
DS: Admitting Diagnosis Discharge Date 08/15/2023 Admitting Diagnosis Fall/Rhabdomyolysis DS: Discharge Diagnosis Discharge Diagnosis (1) Pancreatic mass: Code(s): K86.89 - Other specified diseases of pancreas Status: Acute (2) Rhabdomyolysis: Qualifiers: Rhabdomyolysis type: non-traumatic Qualified Code(s): M62.82 - Rhabdomyolysis Code(s): M62.82 - Rhabdomyolysis Status: Acute (3) Transaminitis: Code(s): R74.01 - Elevation of levels of liver transaminase levels Status: Acute (4) Elevated troponin: Code(s): R79.89 - Other specified abnormal findings of blood chemistry Status: Acute (5) Atrial dysrhythmia: Code(s): I49.8 - Other specified cardiac arrhythmias Status: Acute (6) Acute UTI: Code(s): N39.0 - Urinary tract infection, site not specified Status: Acute Plan Pancreatic mass/adenocarcinoma Biopsy completed likely pancreatic primary Oncology consult in Follow-up O/P with Oncology if treatment is wanted Liver enzymes mildly elevated Falls/weakness/rhabdomyolysis multiple falls PT/OT trend CK levels IV fluids HX of stroke with LT sided weakness D/C home anticoagulation not a candidate due to frequent falls UTI Urine cultures Continue IV hydration. Monitor CBC, CMP watch for sepsis. Monitor vital signs. urine culture with coag-negative staph not saprophyticus. antibiotics switched to cephalexin Anemia Iron panel Iron IV x 1 Start PO Ferrous Sulfate Elevated Troponin Appears to be secondary to ischemic demand Cardiology was consulted Echocardiogram reviewed BP added ACS R/U HX hypothyroidism: Resumed levothyroxine Code status: Full code per patient DVT prophylaxis: SCD's Stress ulcer prophylaxis: Protonix 40 daily PT/OT notes: SNF Disposition: Patient continues admissions to the medical unit patient made aware new diagnosis of pancreatic metastatic adeno carcinoma. Care coordination current working on rehab/SNF placement for discharge. Patient to follow-up with oncologist outpatient if further treatment is wanted. DS: Summary Hospital Course Reason for hospitalization: Fall/Rhabdomyolysis/Pancreatic mass/adenocarcinoma Hospital Course: nterval history: Admission: Medical Chart 78 y/o F presents here after a ground level fall with PMH of CVA (MCA region, residual LUE weakness, 1971), glaucoma, and hypothyroidism. The patient presents here from home via EMS after she sustained a ground level fall overnight. The patient reports that she woke up on the floor last night, unsure how she fell (mechanical versus syncope). She was unable to get up off the floor and laid there all night. Reports incontinence this morning. Now reporting low back pain after fall, pain is nonradiating, and diffuse. Patient seen at [place] ED on 08/02/2023 for similar presentation. Family found her on the floor and we were concerned she was confused. Upon arrival to the ED she was alert and orientated x3. Her CK was elevated then at 1512. Patient had decision-making capacity and elected to be discharged and orally rehydrate. Denies unintentional weight loss or easy bleeding/bruising. Endorses occasional night sweats. No prior history of cancer. Patient is adopted so unknown family history of cancer. Initial VS at presentation: 97.4? F, HR 100, RR 16, 146/97, and 96% on RA. ED workup showed: WBC 14.4, no anemia, potassium 2.9, creatinine 0.5 and GFR >60, glucose 122, total bilirubin 1.8, AST 65, ALT 38, ammonia <9, CK 1066, initial troponin 0.072, and UA consistent with UTI. Head CT showed old infarcts in the brain, C-spine CT showed moderate cervical spondylosis without fracture, lumbar CT showed severe lumbar spondylosis without fracture, and CT of the abdomen/pelvis showed a somewhat ill-defined probable mass at the surgical margin of a suspected prior distal
[2023-08-15 14:00] VITALS: BP 103/48; PULSE 78; RESP 18; TEMP 36.3; O2SAT 100
[2023-08-15 14:36] LABS: SARS-CoV-2 RNA PCR Negative (Negative)
[2023-08-15 20:25] VITALS: BP 128/66; PULSE 80; RESP 18; TEMP 36.4; O2SAT 94
[2023-08-15] MEDS: LATANOPROST 0.005% OP SOLN 2.5 ML BTL 1 DROP EACH EYE (21:03)
[2023-08-16 04:05] VITALS: BP 118/63; PULSE 108; RESP 24; TEMP 36.9; O2SAT 92
[2023-08-16] MEDS: LEVOTHYROXINE SODIUM 25 MCG TABLET PO (06:30)
[2023-08-16 08:51] VITALS: PULSE 87
[2023-08-16] MEDS: METOPROLOL SUCCINATE EXT REL 50 MG TABCR PO (08:51)
[2023-08-16] MEDS: FERROUS SULFATE 325 MG TABLET DR PO ×2 (08:53→17:59)
[2023-08-16 14:00] VITALS: BP 114/62; PULSE 98; RESP 18; TEMP 36.3; O2SAT 96
--- NOTE | 2023-08-16 14:50 | P.PNIM_ITS ---
Progress Note: A&P Assessment and Plan (1) Pancreatic mass: Code(s): K86.89 - Other specified diseases of pancreas Status: Acute (2) Rhabdomyolysis: Qualifiers: Rhabdomyolysis type: non-traumatic Qualified Code(s): M62.82 - Rhabdomyolysis Code(s): M62.82 - Rhabdomyolysis Status: Acute (3) Transaminitis: Code(s): R74.01 - Elevation of levels of liver transaminase levels Status: Acute (4) Elevated troponin: Code(s): R79.89 - Other specified abnormal findings of blood chemistry Status: Acute (5) Atrial dysrhythmia: Code(s): I49.8 - Other specified cardiac arrhythmias Status: Acute (6) Acute UTI: Code(s): N39.0 - Urinary tract infection, site not specified Status: Acute Plan Pancreatic mass/adenocarcinoma * Biopsy completed likely pancreatic primary * Oncology consult in * Follow-up O/P with Oncology if treatment is wanted * Liver enzymes mildly elevated Falls/weakness/rhabdomyolysis * multiple falls * PT/OT * trend CK levels * IV fluids * HX of stroke with LT sided weakness * D/C home anticoagulation not a candidate due to frequent falls UTI * Urine cultures * Continue IV hydration. * Monitor CBC, CMP watch for sepsis. * Monitor vital signs. * urine culture with coag-negative staph not saprophyticus. antibiotics switched to cephalexin Anemia * Iron panel * Iron IV x 1 * Start PO Ferrous Sulfate Elevated Troponin * Appears to be secondary to ischemic demand * Cardiology was consulted * Echocardiogram reviewed * BP added * ACS R/U HX hypothyroidism: Resumed levothyroxine Code status: Full code per patient DVT prophylaxis: SCD's Stress ulcer prophylaxis: Protonix 40 daily PT/OT notes: SNF Disposition: Patient continues admissions to the medical unit patient made aware new diagnosis of pancreatic metastatic adeno carcinoma. Care coordination current working on rehab/SNF placement for discharge. Patient to follow-up with oncologist outpatient if further treatment is wanted. Time Spent With Patient Time with patient: 15 - 25 minutes Subjective Date/time seen: 08/16/23 14:50 Interval history: Admission: Medical Chart 78 y/o F presents here after a ground level fall with PMH of CVA (MCA region, residual LUE weakness, 1971), glaucoma, and hypothyroidism. The patient presents here from home via EMS after she sustained a ground level fall overnight. The patient reports that she woke up on the floor last night, unsure how she fell (mechanical versus syncope). She was unable to get up off the floor and laid there all night. Reports incontinence this morning. Now reporting low back pain after fall, pain is nonradiating, and diffuse. Patient seen at [place] [facility] on 08/02/2023 for similar presentation. Family found her on the floor and we were concerned she was confused. Upon arrival to the ED she was alert and orientated x3. Her CK was elevated then at 1512. Patient had decision-making capacity and elected to be discharged and orally rehydrate. Denies unintentional weight loss or easy bleeding/bruising. Endorses occasional night sweats. No prior history of cancer. Patient is adopted so unknown family history of cancer. Initial VS at presentation: 97.4? F, HR 100, RR 16, 146/97, and 96% on RA. ED workup showed: WBC 14.4, no anemia, potassium 2.9, creatinine 0.5 and GFR >60, glucose 122, total bilirubin 1.8, AST 65, ALT 38, ammonia <9, CK 1066,
[2023-08-16 20:00] VITALS: PULSE 107; RESP 14; O2SAT 97
[2023-08-16 21:03] VITALS: BP 104/67; PULSE 107; RESP 14; TEMP 36.7; O2SAT 97
[2023-08-16] MEDS: LATANOPROST 0.005% OP SOLN 2.5 ML BTL 1 DROP EACH EYE (21:44)
[2023-08-17] MEDS: LEVOTHYROXINE SODIUM 25 MCG TABLET PO (05:27)
[2023-08-17 06:00] VITALS: BP 93/67; PULSE 90; RESP 20; TEMP 35.8; O2SAT 93
[2023-08-17 08:52] VITALS: PULSE 90
[2023-08-17] MEDS: FERROUS SULFATE 325 MG TABLET DR PO ×2 (08:52→16:58)
[2023-08-17] MEDS: METOPROLOL SUCCINATE EXT REL 50 MG TABCR PO (08:52)
[2023-08-17 08:53] LABS: Hemoglobin 11.6 g/dL (12.0-15.0); Mean Corpuscular HGB Conc 33.1 g/dl (32-36); Mean Corpuscular Hemoglobin 28.6 pg (26-34); Mean Corpuscular Volume 86.2 fl (80-100); Platelet Count Result 402 k/mm3 (150-375); Red Blood Count 4.06 M/mm3 (4.2-5.4); Red Cell Distribution Width 17.2 % (11.5-14.5); White Blood Count 7.6 K/mm3 (4.5-10.0)
[2023-08-17 09:01] LABS: Alanine Aminotransferase 32 U/L (6-35); Albumin Level 3.2 g/dL (3.5-5.1); Alkaline Phosphatase 178 U/L (38-126); Anion Gap 7 mmol/L (4-12); Aspartate Amino Transferase 37 U/L (14-36); Bilirubin,Total 0.7 mg/dL (0.2-1.3); Blood Urea Nitrogen 7 mg/dL (7-17); Calcium 8.8 mg/dL (8.4-10.2); Carbon Dioxide 27 mmol/L (22-30); Chloride 106 mmol/L (98-107); Estimated CRCL calculation 66 ml/min; Estimated Glomerular Filt Rate > 60; Glucose 102 mg/dL (65-110); Potassium 3.6 mmol/L (3.4-5.0); Sodium 140 mmol/L (137-145)
[2023-08-17] MEDS: SODIUM CHLORIDE 0.9% IV 500 ML IV CONT (09:15)
[2023-08-17] MEDS: traMADol HCL (*CRX) 50 MG TABLET PO (10:46)
[2023-08-17 14:00] VITALS: BP 107/66; PULSE 107; RESP 22; TEMP 36.3; O2SAT 94
[2023-08-17 20:00] VITALS: PULSE 107; RESP 22; O2SAT 94
[2023-08-17 20:54] VITALS: BP 109/75; PULSE 77; RESP 16; TEMP 36.7; O2SAT 94
[2023-08-17] MEDS: LATANOPROST 0.005% OP SOLN 2.5 ML BTL 1 DROP EACH EYE (21:04)
[2023-08-18 06:00] VITALS: BP 98/61; PULSE 121; RESP 16; TEMP 36.7; O2SAT 98
[2023-08-18] MEDS: LEVOTHYROXINE SODIUM 25 MCG TABLET PO (06:13)
--- NOTE | 2023-08-18 09:05 | PM.IMPN ---
Progress Note: A&P Assessment and Plan (1) Pancreatic mass: Code(s): K86.89 - Other specified diseases of pancreas Status: Acute (2) Rhabdomyolysis: Qualifiers: Rhabdomyolysis type: non-traumatic Qualified Code(s): M62.82 - Rhabdomyolysis Code(s): M62.82 - Rhabdomyolysis Status: Acute (3) Transaminitis: Code(s): R74.01 - Elevation of levels of liver transaminase levels Status: Acute (4) Elevated troponin: Code(s): R79.89 - Other specified abnormal findings of blood chemistry Status: Acute (5) Atrial dysrhythmia: Code(s): I49.8 - Other specified cardiac arrhythmias Status: Acute (6) Acute UTI: Code(s): N39.0 - Urinary tract infection, site not specified Status: Acute Plan Pancreatic mass/adenocarcinoma Biopsy completed likely pancreatic primary Oncology consult in Follow-up O/P with Oncology if treatment is wanted Liver enzymes mildly elevated Hospice consult pending Falls/weakness/rhabdomyolysis multiple falls PT/OT trend CK levels IV fluids HX of stroke with LT sided weakness D/C home anticoagulation not a candidate due to frequent falls UTI Urine cultures Continue IV hydration. Monitor CBC, CMP watch for sepsis. Monitor vital signs. urine culture with coag-negative staph not saprophyticus. antibiotics switched to cephalexin Anemia Iron panel Iron IV x 1 Start PO Ferrous Sulfate Elevated Troponin Appears to be secondary to ischemic demand Cardiology was consulted Echocardiogram reviewed BP added ACS R/U HX hypothyroidism: Resumed levothyroxine Code status: Full code per patient DVT prophylaxis: SCD's Stress ulcer prophylaxis: Protonix 40 daily PT/OT notes: SNF Disposition: Patient continues admissions to the medical unit patient made aware new diagnosis of pancreatic metastatic adeno carcinoma. Care coordination current working on rehab/SNF placement for discharge. Patient to follow-up with oncologist outpatient if further treatment is wanted. Hospice consult placed Time Spent With Patient Time with patient: 15 - 25 minutes Subjective Date/time seen: 08/18/23 09:05 Interval history: Admission: Medical Chart 78 y/o F presents here after a ground level fall with PMH of CVA (MCA region, residual LUE weakness, 1971), glaucoma, and hypothyroidism. The patient presents here from home via EMS after she sustained a ground level fall overnight. The patient reports that she woke up on the floor last night, unsure how she fell (mechanical versus syncope). She was unable to get up off the floor and laid there all night. Reports incontinence this morning. Now reporting low back pain after fall, pain is nonradiating, and diffuse. Patient seen at [place] ED on 08/02/2023 for similar presentation. Family found her on the floor and we were concerned she was confused. Upon arrival to the ED she was alert and orientated x3. Her CK was elevated then at 1512. Patient had decision-making capacity and elected to be discharged and orally rehydrate. Denies unintentional weight loss or easy bleeding/bruising. Endorses occasional night sweats. No prior history of cancer. Patient is adopted so unknown family history of cancer. Initial VS at presentation: 97.4? F, HR 100, RR 16, 146/97, and 96% on RA. ED workup showed: WBC 14.4, no anemia, potassium 2.9, creatinine 0.5 and GFR >60, glucose 122, total bilirubin 1.8, AST 65, ALT 38, ammonia <9, CK 1066, initial troponin 0.072, and UA consistent with UTI. Head CT showed old infarcts in the brain, C-spine CT showed moderate cervical spondylosis without fracture, lumbar CT showed severe lumbar spondylosis without fracture, and CT of the abdomen/pelvis showed a somewhat ill-defined probable mass at the surgical margin of a suspected prior distal pancreatectomy, 1.3 hypodense right hepatic lobe lesion suspicious for metasta
[2023-08-18 10:46] VITALS: PULSE 120
[2023-08-18] MEDS: METOPROLOL SUCCINATE EXT REL 50 MG TABCR PO (10:46)
[2023-08-18] MEDS: traMADol HCL (*CRX) 50 MG TABLET PO ×2 (10:46→19:00)
[2023-08-18] MEDS: FERROUS SULFATE 325 MG TABLET DR PO ×2 (10:47→19:00)
[2023-08-18] MEDS: DEXTROSE 5%/0.9% SOD CHL 1,000 ML 75 ML IV CONT ×2 (10:47→23:50)
[2023-08-18 14:00] VITALS: BP 105/56; PULSE 105; RESP 20; TEMP 36.4; O2SAT 96
[2023-08-18] MEDS: LATANOPROST 0.005% OP SOLN 2.5 ML BTL 1 DROP EACH EYE (20:34)
[2023-08-18 20:40] VITALS: RESP 20; O2SAT 96
[2023-08-18 21:49] VITALS: BP 129/74; PULSE 62; RESP 18; TEMP 36.5; O2SAT 96
[2023-08-19 05:30] VITALS: BP 100/47; PULSE 70; RESP 16; TEMP 36.4; O2SAT 97
[2023-08-19] MEDS: LEVOTHYROXINE SODIUM 25 MCG TABLET PO (06:06)
[2023-08-19 06:30] LABS: Hematocrit 33.7 % (37.0-47.0); Hemoglobin 10.6 g/dL (12.0-15.0); Mean Corpuscular HGB Conc 31.5 g/dl (32-36); Mean Corpuscular Hemoglobin 28.2 pg (26-34); Mean Corpuscular Volume 89.6 fl (80-100); Mean Platelet Volume 10.3 fl (7.4-10.4); Platelet Count Result 380 k/mm3 (150-375); Red Blood Count 3.76 M/mm3 (4.2-5.4); Red Cell Distribution Width 18.1 % (11.5-14.5); White Blood Count 8.8 K/mm3 (4.5-10.0)
[2023-08-19 06:48] LABS: Alanine Aminotransferase 29 U/L (6-35); Albumin Level 2.9 g/dL (3.5-5.1); Alkaline Phosphatase 153 U/L (38-126); Anion Gap 3 mmol/L (4-12); Aspartate Amino Transferase 37 U/L (14-36); Bilirubin,Total 0.8 mg/dL (0.2-1.3); Blood Urea Nitrogen 6 mg/dL (7-17); Calcium 8.4 mg/dL (8.4-10.2); Carbon Dioxide 27 mmol/L (22-30); Chloride 107 mmol/L (98-107); Estimated CRCL calculation 66 ml/min; Estimated Glomerular Filt Rate > 60; Glucose 108 mg/dL (65-110); Potassium 3.9 mmol/L (3.4-5.0); Sodium 137 mmol/L (137-145)
[2023-08-19 08:00] VITALS: PULSE 70; RESP 16; O2SAT 97
[2023-08-19] MEDS: METOPROLOL SUCCINATE EXT REL 50 MG TABCR PO (08:58)
[2023-08-19] MEDS: FERROUS SULFATE 325 MG TABLET DR PO ×2 (08:58→18:36)
[2023-08-19] MEDS: DEXTROSE 5%/0.9% SOD CHL 1,000 ML 75 ML IV CONT (08:59)
[2023-08-19 14:00] VITALS: BP 108/69; PULSE 76; RESP 18; TEMP 36.3; O2SAT 96
--- NOTE | 2023-08-19 14:53 | P.PNIM_ITS ---
Progress Note: A&P Assessment and Plan (1) Pancreatic mass: Code(s): K86.89 - Other specified diseases of pancreas Status: Acute Assessment and Plan: * Biopsy completed likely pancreatic primary * Oncology consulted * Follow-up O/P with Oncology if treatment is wanted. Pt and family not wanting this at this time. * Liver enzymes mildly elevated * SNF auth pending. Waiting to clear patient due to possible felony charge. (2) Rhabdomyolysis: Qualifiers: Rhabdomyolysis type: non-traumatic Qualified Code(s): M62.82 - Rhabdomyolysis Code(s): M62.82 - Rhabdomyolysis Status: Acute Assessment and Plan: * multiple falls * PT/OT * Ck at presentation 1066; CK levels resolved * IV fluids given but since have been discontinued. * HX of stroke with LT sided weakness * D/C home anticoagulation not a candidate due to frequent falls (3) Transaminitis: Code(s): R74.01 - Elevation of levels of liver transaminase levels Status: Acute Assessment and Plan: Likely due to pancreatic cancer. (4) Elevated troponin: Code(s): R79.89 - Other specified abnormal findings of blood chemistry Status: Acute Assessment and Plan: * Appears to be secondary to ischemic demand * Cardiology was consulted * Echocardiogram reviewed * BP added * ACS R/U (5) Atrial dysrhythmia: Code(s): I49.8 - Other specified cardiac arrhythmias Status: Acute (6) Acute UTI: Code(s): N39.0 - Urinary tract infection, site not specified Status: Acute Assessment and Plan: * Urine cultures * urine culture with coag-negative staph not saprophyticus. antibiotics switched to cephalexin. * cephalexin tx completed. Plan Subjective Date/time seen: 08/19/23 14:53 Interval history: Patient doing well and appears to be in good spirits. Waiting on insurance Auth for discharge to SNF. Exam Narrative: GENERAL: Comfortable, no acute distress HENMT: moist mucous membranes EYES: EOM intact b/l NECK: no lymphadenopathy RESPIRATORY: clear to auscultation, no increased respiratory effort CARDIO: Regular rate and rhythm GI: soft, nontender, bowel sounds present SKIN/EXTREMITIES: no rashes, no edema, no redness or tenderness NEURO: PROM intact, answers questions appropriately, A&O x4 Objective Data Vital Signs Vital Signs: Vital Signs - 24 hr 08/18/23 20:40 08/18/23 21:49 08/19/23 05:30 Temperature 97.7 F 97.5 F L Pulse Rate 62 70 Respiratory Rate 20 18 16 Blood Pressure 129/74 100/47 L Pulse Oximetry 96 96 97 Oxygen Delivery Room Air Fraction of Inspired Oxygen 21 08/19/23 08:00 08/19/23 14:00 Temperature 97.4 F L Pulse Rate 70 76 Respiratory Rate 16 18 Blood Pressure 108/69 Pulse Oximetry 97 96 Oxygen Delivery Room Air Fraction of Inspired Oxygen 21 Intake/Output Intake/Output: Intake & Output 08/16/23 08/17/23 08/18/23 08/19/23 23:59 23:59 23:59 23:59 Intake Total 1948 7 1972.8 1156.3 Output Total 7779 075 5245 150 Balance 233 1467 472.8 1006.3 Meds/Results Medications:
--- NOTE | 2023-08-19 14:53 | PM.IMPN ---
Progress Note: A&P Assessment and Plan (1) Pancreatic mass: Code(s): K86.89 - Other specified diseases of pancreas Status: Acute Assessment and Plan: Biopsy completed likely pancreatic primary Oncology consulted Follow-up O/P with Oncology if treatment is wanted. Pt and family not wanting this at this time. Liver enzymes mildly elevated SNF auth pending. Waiting to clear patient due to possible felony charge. (2) Rhabdomyolysis: Qualifiers: Rhabdomyolysis type: non-traumatic Qualified Code(s): M62.82 - Rhabdomyolysis Code(s): M62.82 - Rhabdomyolysis Status: Acute Assessment and Plan: multiple falls PT/OT Ck at presentation 1066; CK levels resolved IV fluids given but since have been discontinued. HX of stroke with LT sided weakness D/C home anticoagulation not a candidate due to frequent falls (3) Transaminitis: Code(s): R74.01 - Elevation of levels of liver transaminase levels Status: Acute Assessment and Plan: Likely due to pancreatic cancer. (4) Elevated troponin: Code(s): R79.89 - Other specified abnormal findings of blood chemistry Status: Acute Assessment and Plan: Appears to be secondary to ischemic demand Cardiology was consulted Echocardiogram reviewed BP added ACS R/U (5) Atrial dysrhythmia: Code(s): I49.8 - Other specified cardiac arrhythmias Status: Acute (6) Acute UTI: Code(s): N39.0 - Urinary tract infection, site not specified Status: Acute Assessment and Plan: Urine cultures urine culture with coag-negative staph not saprophyticus. antibiotics switched to cephalexin. cephalexin tx completed. Plan Subjective Date/time seen: 08/19/23 14:53 Interval history: Patient doing well and appears to be in good spirits. Waiting on insurance Auth for discharge to SNF. Exam Narrative: GENERAL: Comfortable, no acute distress HENMT: moist mucous membranes EYES: EOM intact b/l NECK: no lymphadenopathy RESPIRATORY: clear to auscultation, no increased respiratory effort CARDIO: Regular rate and rhythm GI: soft, nontender, bowel sounds present SKIN/EXTREMITIES: no rashes, no edema, no redness or tenderness NEURO: PROM intact, answers questions appropriately, A&O x4 Objective Data Vital Signs Vital Signs: Vital Signs - 24 hr 08/18/23 20:40 08/18/23 21:49 08/19/23 05:30 Temperature 97.7 F 97.5 F L Pulse Rate 62 70 Respiratory Rate 20 18 16 Blood Pressure 129/74 100/47 L Pulse Oximetry 96 96 97 Oxygen Delivery Room Air Fraction of Inspired Oxygen 21 08/19/23 08:00 08/19/23 14:00 Temperature 97.4 F L Pulse Rate 70 76 Respiratory Rate 16 18 Blood Pressure 108/69 Pulse Oximetry 97 96 Oxygen Delivery Room Air Fraction of Inspired Oxygen 21 Intake/Output Intake/Output: Intake & Output 08/16/23 08/17/23 08/18/23 08/19/23 23:59 23:59 23:59 23:59 Intake Total 1948 2067 1972.8 1156.3 Output Total 9698 077 4291 150 Balance 233 1467 472.8 1006.3 Meds/Results Medications: Active Medications Generic Name Dose Route Start Last Admin Trade Name Freq PRN Reason Stop Dose Admin Ferrous Sulfate 325 mg 08/14/23 08:40 08/19/23 08:58 Ferrous Sulfate [address] PO 325 mg BIDWM DIVYA Administration Dextrose/Sodium Chloride 1,000 mls @ 75 mls/hr 08/18/23 07:35 08/19/23 08:59 Dextrose 5% Sodium Chloride 0.9% IV CONT 75 mls/hr .[id number] DIVYA Administration Latanoprost 1 drop 08/09/23 22:00 08/18/23 20:34 Latanoprost 0.005% Op Soln 2.5 Ml Btl EACH EYE 1 drop HS DIVYA Administration Levothyroxine Sodium 25 mcg 08/10/23 06:30 08/19/23 06:06 Levothyroxine Sodium 25 Mcg Tablet PO 25 mcg DAILY@0630 DIVYA Administration Metoprolol Succinate 50 mg 08/10/23 11:05 08/19/23 08:58 Metoprolol Succinate Ext Rel 50 Mg Tabcr PO 50 mg QAM [facility] Administrat
[2023-08-19] MEDS: LATANOPROST 0.005% OP SOLN 2.5 ML BTL 1 DROP EACH EYE (21:31)
[2023-08-19 22:00] VITALS: BP 104/43; PULSE 64; RESP 15; TEMP 36.6; O2SAT 98
[2023-08-20] MEDS: LEVOTHYROXINE SODIUM 25 MCG TABLET PO (05:25)
[2023-08-20 05:35] VITALS: BP 104/40; PULSE 65; RESP 15; TEMP 36.6; O2SAT 95
[2023-08-20] MEDS: METOPROLOL SUCCINATE EXT REL 50 MG TABCR PO (09:03)
[2023-08-20] MEDS: FERROUS SULFATE 325 MG TABLET DR PO ×2 (09:03→17:07)
--- NOTE | 2023-08-20 11:49 | PCOTNOTE ---
Attempted to see Patient for A.M. treatment session. Patient in bed upon arrival and seems to be frustrated in general. Patient refused to perform any activiites, stated want to be left alone, just let me be in bed as comfortable as I can, I'm depressed .
[2023-08-20 13:50] VITALS: BP 117/58; PULSE 65; RESP 17; TEMP 36.1; O2SAT 99
--- NOTE | 2023-08-20 14:29 | P.PNIM_ITS ---
Progress Note: A&P Assessment and Plan (1) Pancreatic mass: Code(s): K86.89 - Other specified diseases of pancreas Status: Acute Assessment and Plan: * Biopsy completed likely pancreatic primary * Oncology consulted * Follow-up O/P with Oncology if treatment is wanted. Pt and family not wanting this at this time. * Liver enzymes mildly elevated * SNF auth pending. Waiting to clear patient due to possible felony charge. (2) Rhabdomyolysis: Qualifiers: Rhabdomyolysis type: non-traumatic Qualified Code(s): M62.82 - Rhabdomyolysis Code(s): M62.82 - Rhabdomyolysis Status: Acute Assessment and Plan: * multiple falls * PT/OT * Ck at presentation 1066; CK levels resolved. * IV fluids given but since have been discontinued. * HX of stroke with LT sided weakness * D/C home anticoagulation not a candidate due to frequent falls (3) Transaminitis: Code(s): R74.01 - Elevation of levels of liver transaminase levels Status: Acute Assessment and Plan: Likely due to pancreatic cancer. (4) Elevated troponin: Code(s): R79.89 - Other specified abnormal findings of blood chemistry Status: Acute Assessment and Plan: * Appears to be secondary to ischemic demand * Cardiology was consulted * Echocardiogram reviewed * BP added * ACS R/U (5) Atrial dysrhythmia: Code(s): I49.8 - Other specified cardiac arrhythmias Status: Acute (6) Acute UTI: Code(s): N39.0 - Urinary tract infection, site not specified Status: Acute Assessment and Plan: * Urine cultures * urine culture with coag-negative staph not saprophyticus. antibiotics switched to cephalexin. * cephalexin tx completed. Plan Subjective Date/time seen: 08/20/23 14:29 Interval history: Patient doing fine today. Waiting on SNF placement. Exam Narrative: GENERAL: Comfortable, no acute distress HENMT: moist mucous membranes EYES: EOM intact b/l NECK: no lymphadenopathy RESPIRATORY: clear to auscultation, no increased respiratory effort CARDIO: Regular rate and rhythm GI: soft, nontender, bowel sounds present SKIN/EXTREMITIES: no rashes, no edema, no redness or tenderness Objective Data Vital Signs Vital Signs: Vital Signs - 24 hr 08/19/23 22:00 08/20/23 05:35 08/20/23 08:00 Temperature 97.8 F 97.9 F Pulse Rate 64 65 Respiratory Rate 15 15 Blood Pressure 104/43 L 104/40 L Pulse Oximetry 98 95 Oxygen Delivery Room Air 08/20/23 13:50 Temperature 96.9 F L Pulse Rate 65 Respiratory Rate 17 Blood Pressure 117/58 L Pulse Oximetry 99 Oxygen Delivery Intake/Output Intake/Output: Intake & Output 08/17/23 08/18/23 08/19/23 08/20/23 23:59 23:59 23:59 23:59 Intake Total 2067 1972.8 1396.3 340 Output Total 600 6256 937 1098 Balance 1467 472.8 1046.3 -1210 Meds/Results Medications: Active Medications Generic Name Dose Route Start Last Admin Trade Name Freq PRN Reason Stop Dose Admin Ferrous Sulfate
--- NOTE | 2023-08-20 14:29 | PM.IMPN ---
Progress Note: A&P Assessment and Plan (1) Pancreatic mass: Code(s): K86.89 - Other specified diseases of pancreas Status: Acute Assessment and Plan: Biopsy completed likely pancreatic primary Oncology consulted Follow-up O/P with Oncology if treatment is wanted. Pt and family not wanting this at this time. Liver enzymes mildly elevated SNF auth pending. Waiting to clear patient due to possible felony charge. (2) Rhabdomyolysis: Qualifiers: Rhabdomyolysis type: non-traumatic Qualified Code(s): M62.82 - Rhabdomyolysis Code(s): M62.82 - Rhabdomyolysis Status: Acute Assessment and Plan: multiple falls PT/OT Ck at presentation 1066; CK levels resolved. IV fluids given but since have been discontinued. HX of stroke with LT sided weakness D/C home anticoagulation not a candidate due to frequent falls (3) Transaminitis: Code(s): R74.01 - Elevation of levels of liver transaminase levels Status: Acute Assessment and Plan: Likely due to pancreatic cancer. (4) Elevated troponin: Code(s): R79.89 - Other specified abnormal findings of blood chemistry Status: Acute Assessment and Plan: Appears to be secondary to ischemic demand Cardiology was consulted Echocardiogram reviewed BP added ACS R/U (5) Atrial dysrhythmia: Code(s): I49.8 - Other specified cardiac arrhythmias Status: Acute (6) Acute UTI: Code(s): N39.0 - Urinary tract infection, site not specified Status: Acute Assessment and Plan: Urine cultures urine culture with coag-negative staph not saprophyticus. antibiotics switched to cephalexin. cephalexin tx completed. Plan Subjective Date/time seen: 08/20/23 14:29 Interval history: Patient doing fine today. Waiting on SNF placement. Exam Narrative: GENERAL: Comfortable, no acute distress HENMT: moist mucous membranes EYES: EOM intact b/l NECK: no lymphadenopathy RESPIRATORY: clear to auscultation, no increased respiratory effort CARDIO: Regular rate and rhythm GI: soft, nontender, bowel sounds present SKIN/EXTREMITIES: no rashes, no edema, no redness or tenderness Objective Data Vital Signs Vital Signs: Vital Signs - 24 hr 08/19/23 22:00 08/20/23 05:35 08/20/23 08:00 Temperature 97.8 F 97.9 F Pulse Rate 64 65 Respiratory Rate 15 15 Blood Pressure 104/43 L 104/40 L Pulse Oximetry 98 95 Oxygen Delivery Room Air 08/20/23 13:50 Temperature 96.9 F L Pulse Rate 65 Respiratory Rate 17 Blood Pressure 117/58 L Pulse Oximetry 99 Oxygen Delivery Intake/Output Intake/Output: Intake & Output 08/17/23 08/18/23 08/19/23 08/20/23 23:59 23:59 23:59 23:59 Intake Total 2067 1972.8 1396.3 340 Output Total 600 0617 258 0211 Balance 1467 472.8 1046.3 -1210 Meds/Results Medications: Active Medications Generic Name Dose Route Start Last Admin Trade Name Freq PRN Reason Stop Dose Admin Ferrous Sulfate 325 mg 08/14/23 08:40 08/20/23 09:03 Ferrous Sulfate [address] PO 325 mg BIDWM DIVYA Administration Latanoprost 1 drop 08/09/23 22:00 08/19/23 21:31 Latanoprost 0.005% Op Soln 2.5 Ml Btl EACH EYE 1 drop HS [facility] Administration Levothyroxine Sodium 25 mcg 08/10/23 06:30 08/20/23 05:25 Levothyroxine Sodium 25 Mcg Tablet PO 25 mcg DAILY@0630 DIVYA Administration Metoprolol Succinate 50 mg 08/10/23 11:05 08/20/23 09:03 Metoprolol Succinate Ext Rel 50 Mg Tabcr PO 50 mg QAM DIVYA Administration Miconazole Nitrate 1 applic 08/16/23 21:00 08/20/23 09:03 Miconazole 2% Antifungal Ointment 56 Gm TOPICAL 1 applic Q12HR DIVYA Administration Morphine Sulfate 1 mg 08/18/23 12:16 Morphine Sulfate (*Crx) 2 Mg/Ml Inj IV PUSH Q3HR PRN Pain Rated 7-10 Tramadol HCl 50 mg 08/17/23 09:34 08/18/23 19:00 Tramadol Hcl (*Crx) 50 Mg T
[2023-08-20] MEDS: LATANOPROST 0.005% OP SOLN 2.5 ML BTL 1 DROP EACH EYE (20:39)
[2023-08-20 22:00] VITALS: BP 110/42; PULSE 65; RESP 16; TEMP 36.3; O2SAT 97
[2023-08-21] MEDS: LEVOTHYROXINE SODIUM 25 MCG TABLET PO (05:43)
[2023-08-21 06:00] VITALS: BP 118/56; PULSE 64; RESP 16; TEMP 36.2; O2SAT 95
--- NOTE | 2023-08-21 08:00 | PM.DS ---
DS: Admitting Diagnosis Discharge Date 08/21/23 Admitting Diagnosis ground level fall, weakness DS: Discharge Diagnosis Discharge Diagnosis (1) Pancreatic mass: Code(s): K86.89 - Other specified diseases of pancreas Status: Acute (2) Rhabdomyolysis: Qualifiers: Rhabdomyolysis type: non-traumatic Qualified Code(s): M62.82 - Rhabdomyolysis Code(s): M62.82 - Rhabdomyolysis Status: Acute (3) Transaminitis: Code(s): R74.01 - Elevation of levels of liver transaminase levels Status: Acute (4) Elevated troponin: Code(s): R79.89 - Other specified abnormal findings of blood chemistry Status: Acute (5) Atrial dysrhythmia: Code(s): I49.8 - Other specified cardiac arrhythmias Status: Acute (6) Acute UTI: Code(s): N39.0 - Urinary tract infection, site not specified Status: Acute DS: Summary Hospital Course Hospital Course: 78 y/o F presents here after a ground level fall with PMH of CVA (MCA region, residual LUE weakness, 1971), glaucoma, and hypothyroidism. The patient presents here from home via EMS after she sustained a ground level fall overnight. She was unable to get up off the floor and laid there all night. Family found her on the floor and we were concerned she was confused. Her CK was elevated then at 1512. ED workup showed: WBC 14.4, no anemia, potassium 2.9, creatinine 0.5 and GFR >60, glucose 122, total bilirubin 1.8, AST 65, ALT 38, ammonia <9, CK 1066, initial troponin 0.072, and UA consistent with UTI. Head CT showed old infarcts in the brain, C-spine CT showed moderate cervical spondylosis without fracture, lumbar CT showed severe lumbar spondylosis without fracture, and CT of the abdomen/pelvis showed a somewhat ill-defined probable mass at the surgical margin of a suspected prior distal pancreatectomy, 1.3 hypodense right hepatic lobe lesion suspicious for metastasis, and possible cystitis.Patient was treated for UTI. Oncology consulted for pancreatic mass. patient see a 19-9 concerning for metastatic pancreatic cancer. Liver biopsy showed well-differentiated pancreatic adenocarcinoma. Patient was informed of her stage IV pancreatic cancer and palliative chemotherapy was discussed with her. Oncology agreed to follow-up in their office with her. PT and OT worked with the patient. CK levels returned normal. Patient completed UTI treatment while in the hospital. Patient had extended hospital stay due to authorization / placement into SNF. Time Spent with Patient Time attestation: Total time spent providing and/or coordinating discharge services: Exam Narrative: GENERAL: Comfortable, no acute distress HENMT: moist mucous membranes EYES: EOM intact b/l , no scleral icterus NECK: no lymphadenopathy RESPIRATORY: clear to auscultation, no increased respiratory effort CARDIO: Regular rate and rhythm GI: soft, nontender, bowel sounds present SKIN/EXTREMITIES: no rashes, no edema, no redness or tenderness DS: Data Data Completed and Pending Completed studies during hospitalization: Pending at discharge 08/12/23 11:13 Surgical [PTH] Routine Discharge Plan Discharge Attending physician on discharge: Clover Best Consulting providers: Kwaku Mendez; Albino Gallardo Discharging Clinician: Sharda Ponce Patient Disposition: SNF Activity: may shower Diet: as tolerated and regular Discharge Instructions: How can you care for yourself at home? ? Keep track of any new symptoms or changes in your symptoms. ? Rest until you feel better. ? Be safe with medicines. Take your medicines exactly as prescribed. Call your doctor if you think you are having a problem with your medicine. ? Do not drive after taking a prescription pain medicine. ? Ensure to follow-up with primary care physician as indicated and provide updated medication list provided to you at discharge. When should you call for
--- NOTE | 2023-08-21 09:18 | PCOTNOTE ---
Attempted to see Patient at this time this A.M. Patient refused to participate in any activities. Patient states 'she is depressed, I have cancer and I don't want to be bothered . Patient was educated on the importance of movement and self care. Patient verbalized, I don't care, I don't even want to eat .
[2023-08-21 09:21] VITALS: PULSE 64
[2023-08-21] MEDS: METOPROLOL SUCCINATE EXT REL 50 MG TABCR PO (09:21)
[2023-08-21] MEDS: FERROUS SULFATE 325 MG TABLET DR PO (09:21)
--- NOTE | 2023-08-21 10:24 | PCPTNOTE ---
Patient refused treatment this session. Patient states I am too depressed. You know I have cancer. Encouraged patient to participate however she continued to refuse.
--- NOTE | 2023-08-21 11:20 | PC.NURSE ---
Telephone report given to Manny Marino Nursing & inspector repairer.
== END 2023-08-21 12:59 | DRG 436 ==
LOC: ANHED 15:03 → ANHIMU 15:39 → ANH3MEDSUR 08-13 09:46 → ANHIMU 08-22 10:34
PROVIDERS: Emergency Medicine; Internal Medicine; Nurse Practitioner Family; Student in an Organized Health Care Education/Training Program; Admitting Provider Hospitalist; Emergency Provider Nurse Practitioner Family; PCP Family Medicine; Visit Provider Internal Medicine
DX: C25.9 Malignant neoplasm of pancreas, unspecified (principal); C78.7 Secondary malignant neoplasm of liver and intrahepatic bile duct; I24.89 Other forms of acute ischemic heart disease; I69.354 Hemiplegia and hemiparesis following cerebral infarction affecting left non-dominant side; M62.82 Rhabdomyolysis; E46 Unspecified protein-calorie malnutrition; N39.0 Urinary tract infection, site not specified; B95.7 Other staphylococcus as the cause of diseases classified elsewhere; W18.30XA Fall on same level, unspecified, initial encounter; D64.9 Anemia, unspecified; E87.6 Hypokalemia; R74.01 Elevation of levels of liver transaminase levels; I49.8 Other specified cardiac arrhythmias; E03.9 Hypothyroidism, unspecified; H40.9 Unspecified glaucoma; Z87.891 Personal history of nicotine dependence; Z68.21 Body mass index [BMI] 21.0-21.9, adult; Z20.822 Contact with and (suspected) exposure to COVID-19
CPT/HCPCS: 36415; 47000; 70450; 71045; 72125; 72131; 74177; 76942; 80048; 80053; 80061; 81001; 82140; 82550; 82607; 82728; 82746; 83540; 83550; 83735; 84100; 84443; 84484; 85025; 85027; 85049; 85610; 85730; 86301; 87077; 87086; 87088; 87181; 87635; 88307; 88342; 93005; 93306; 96374; 97110; 97116; 97161; 97166; 97530; 97535; 99285; A9270; J0696; J1756; J3475; J3480; J7030; J7040; J7042; J7050; Q9967